=== PATIENT | male | born 1940 | race Caucasian/White ===

== ENCOUNTER 2017-11-15 21:41 | Observation (INO) | payer MEDICARE, OTHER ==
[~2017-11-15] VITALS: Ht 167.6 cm; Wt 79.4 kg
[~2017-11-15 21:41] MED LIST: ALBU0.084 NEB; ALBUAER3 IN; ASPI81CH43 PO; BUDE160A3 INH; CAR3125T PO; ENA2.5T PO; FLUC200T35 PO; FURO20TA3 PO; LEV500T PO; OXYB10TA13 PO; POT10T PO; SACC250C PO; SIMV10TA84 PO; SPIR25TA88 PO; TERA10CA36 PO
[2017-11-15 21:58] VITALS: BP 130/46
[2017-11-15 22:25] LABS: Alanine Aminotransferase 26 U/L (16-61); Albumin 3.1 g/dL (3.4-5.0); Alkaline Phosphatase 138 U/L (45-117); Anion Gap 7 (5-15); Aspartate Aminotransferase 28 U/L (15-37); Bilirubin, Total 0.5 mg/dL (0.2-1.0); Blood Urea Nitrogen 32 mg/dL (7-18); Calcium 8.3 mg/dL (8.5-10.1); Carbon Dioxide 22 mmol/L (21-32); Chloride 111 mmol/L (98-107); GFR African American 74 mL/min; GFR Non-African American 61 mL/min; Glucose 107 mg/dL (74-106); Magnesium 2.4 mg/dL (1.6-2.6); Potassium 4.3 mmol/L (3.5-5.1); Sodium 140 mmol/L (136-145); Total Protein 6.4 g/dL (6.4-8.2)
[2017-11-15 22:29] LABS: Basophils # (auto) 0.1 uL; Eosinophils # (auto) 0.4 uL; Hematocrit 39.3 % (41.0-53.0); Lymphocytes # (auto) 1.1 uL; Lymphocytes % (auto) 12.5 % (10.0-50.0); Mean Corpuscular Hemoglobin 30.9 pg (28.0-32.0); Mean Corpuscular Volume 93.7 fL (80.0-100.0); Monocytes # (auto) 0.7 uL; Monocytes % (auto) 8.1 % (0.0-12.0); Neutrophils # (auto) 6.8 uL; Neutrophils % (auto) 74.4 % (37.0-80.0); Nucleated Red Blood Cells % 0.1 %; Platelet Count (auto) 220 10^3/uL (140-450); Red Cell Distribution Width 14.8 % (11.8-14.3); White Blood Cell 9.1 10^3/uL (4.4-10.8)
[2017-11-15 22:40] LABS: Urine Amorphous Crystal FEW /hpf (None Seen); Urine Bacteria FEW /hpf (None Seen); Urine Blood Negative /uL (Negative); Urine Mucus FEW (None Seen); Urine Specific Gravity 1.024 (1.001-1.035); Urine WBC 20 /hpf (0 - 3)
[2017-11-15 22:43] LABS: INR 0.96 (0.9-1.15); Partial Thromboplastin Time 25.9 sec (23.78-33.04); Prothrombin Time 10.3 sec (9.27-12.13)
[2017-11-15 22:50] LABS: Alcohol, Urine < 3.0 mg/dL (0-5); Amphetamine Screen, Urine NEGATIVE (NEGATIVE); Barbiturate Scree,Urine NEGATIVE (NEGATIVE); Benzodiazephine Screen, Urine NEGATIVE (NEGATIVE); Cannabinoid Screen, Urine POSITIVE (NEGATIVE); Cocaine Screen, Urine NEGATIVE (NEGATIVE); Opiate Scree,Urine NEGATIVE (NEGATIVE); Phencyclidine Screen, Urine NEGATIVE (NEGATIVE)
== END 2017-11-16 00:03 | disposition home or self-care (01) | DRG 696 ==
LOC: ER 21:41 → OVERFLOW 21:42 → ER 11-16 00:03
PROVIDERS: ADMIT Emergency Medicine; ATTEND Emergency Medicine
DX: R33.9 Retention of urine, unspecified (principal); N39.0 Urinary tract infection, site not specified; Z79.899 Other long term (current) drug therapy; I11.0 Hypertensive heart disease with heart failure; I50.9 Heart failure, unspecified; J44.9 Chronic obstructive pulmonary disease, unspecified; E78.5 Hyperlipidemia, unspecified; F41.9 Anxiety disorder, unspecified; F17.210 Nicotine dependence, cigarettes, uncomplicated; Z87.442 Personal history of urinary calculi
CPT/HCPCS: 36415; 71045; 80053; 80307; 81001; 83735; 83880; 84484; 85025; 85379; 85610; 85730; 93005; 99285; G0378

== ENCOUNTER 2017-11-18 00:48 | Observation (INO) | payer MEDICARE, OTHER ==
[~2017-11-18] VITALS: Ht 170.2 cm; Wt 79.4 kg
[2017-11-18 01:49] LABS: Basophils # (auto) 0.1 uL; Basophils % (auto) 1.2 % (0.0-2.0); Eosinophils # (auto) 0.3 uL; Eosinophils % (auto) 2.5 % (0.0-7.0); Hematocrit 39.5 % (41.0-53.0); Lymphocytes # (auto) 0.9 uL; Lymphocytes % (auto) 8.4 % (10.0-50.0); Mean Corpuscular Hemoglobin 30.6 pg (28.0-32.0); Mean Corpuscular Volume 92.9 fL (80.0-100.0); Monocytes # (auto) 0.7 uL; Monocytes % (auto) 6.6 % (0.0-12.0); Neutrophils # (auto) 8.4 uL; Neutrophils % (auto) 81.3 % (37.0-80.0); Nucleated Red Blood Cells % 0.1 %; Platelet Count (auto) 219 10^3/uL (140-450); Red Blood Cells 4.25 10^6/uL (4.5-5.90); Red Cell Distribution Width 14.9 % (11.8-14.3); White Blood Cell 10.4 10^3/uL (4.4-10.8)
[2017-11-18 02:06] LABS: INR 0.95 (0.9-1.15); Partial Thromboplastin Time 26.1 sec (23.78-33.04); Prothrombin Time 10.2 sec (9.27-12.13)
[2017-11-18 02:07] LABS: Alanine Aminotransferase 33 U/L (16-61); Albumin 3.2 g/dL (3.4-5.0); Anion Gap 9 (5-15); Aspartate Aminotransferase 31 U/L (15-37); BUN/Creatinine Ratio 24.5; Blood Urea Nitrogen 23 mg/dL (7-18); Calcium 8.1 mg/dL (8.5-10.1); Carbon Dioxide 21 mmol/L (21-32); Chloride 110 mmol/L (98-107); GFR African American 100 mL/min; GFR Non-African American 83 mL/min; Glucose 110 mg/dL (74-106); Magnesium 2.1 mg/dL (1.6-2.6); Potassium 4.7 mmol/L (3.5-5.1); Sodium 140 mmol/L (136-145)
[2017-11-18 02:10] LABS: Alkaline Phosphatase 114 U/L (45-117); Bilirubin, Total 0.6 mg/dL (0.2-1.0); Total Protein 6.5 g/dL (6.4-8.2)
[2017-11-18 03:07] VITALS: BP 139/81
[2017-11-18] MEDS ORDERED: fentaNYL CITRATE 100 MCG/2 ML VL IV ONE (03:45)
== END 2017-11-18 06:15 | disposition home or self-care (01) | DRG 204 ==
LOC: ER 00:48 → OVERFLOW 00:49 → ER 06:05
PROVIDERS: ADMIT Anesthesiology; ATTEND Anesthesiology
DX: R06.03 Acute respiratory distress (principal); T83.038A Leakage of other urinary catheter, initial encounter; I11.0 Hypertensive heart disease with heart failure; E78.5 Hyperlipidemia, unspecified; I50.9 Heart failure, unspecified; J44.9 Chronic obstructive pulmonary disease, unspecified; F17.210 Nicotine dependence, cigarettes, uncomplicated; Z87.442 Personal history of urinary calculi; Y73.8 Miscellaneous gastroenterology and urology devices associated with adverse incidents, not elsewhere classified; Z85.46 Personal history of malignant neoplasm of prostate
CPT/HCPCS: 36415; 71045; 74176; 80053; 80320; 83735; 83880; 84484; 85025; 85610; 85730; 93005; 96374; 99285; G0378; J3010

== ENCOUNTER 2020-01-29 15:58 | Inpatient (IN) | payer OTHER, MEDICARE ==
[~2020-01-29] VITALS: Ht 170.2 cm; Wt 190.0 kg
[~2020-01-29 15:58] MED LIST changes: -ALBU0.084 NEB; +ALFU10TA33 PO; +APIX5TAB PO; +ASCO-22 PO; -ASPI81CH43 PO; +ATOR1TAB PO; -CAR3125T PO; +CETI10TA80 PO; +CHOL100046 PO; +DOCU250C3 PO; -ENA2.5T PO; +FERR-20 PO; -FLUC200T35 PO; +FLUT0.05 NAS; +FURO1TAB31 PO; -FURO20TA3 PO; +GUAI200T2 PO; +IBUP200C3 PO; -LEV500T PO; +LEVO500T21 PO; +MET25T PO; -OXYB10TA13 PO; +OXYB10TA14 PO; +PANT40TA2 PO; +TIOT17SP IN; +TRAM50TA2 PO
[2020-01-29] MEDS ORDERED: MORPHINE SULFATE 4 MG/ML SYR/VIAL IV ONE (16:30)
[2020-01-29] MEDS ORDERED: ONDANSETRON HCL 4 MG/2 ML VIAL IV ONE (16:30)
[2020-01-29 17:16] LABS: Basophils # (auto) 0 10 ^3/uL (0-0.2); Basophils % (auto) 0.2 % (0.0-2.0); Eosinophils # (auto) 0.1 10 ^3/uL (0-0.8); Eosinophils % (auto) 1.1 % (0.0-7.0); Hematocrit 31.6 % (41.0-53.0); Hemoglobin 10.3 g/dL (13.5-17.5); Lymphocytes # (auto) 0.7 10 ^3/uL (0.4-5.4); Lymphocytes % (auto) 6.5 % (10.0-50.0); Mean Corpuscular Hemoglobin 29.4 pg (28.0-32.0); Mean Corpuscular Hgb Conc. 32.7 g/dL (32.0-36.0); Mean Corpuscular Volume 89.8 fL (80.0-100.0); Monocytes # (auto) 0.7 10 ^3/uL (0-1.3); Monocytes % (auto) 6.3 % (0.0-12.0); Neutrophils # (auto) 9.7 10 ^3/uL (1.6-8.6); Neutrophils % (auto) 85.9 % (37.0-80.0); Platelet Count (auto) 232 10^3/uL (140-450); Red Blood Cells 3.51 10^6/uL (4.5-5.90); Red Cell Distribution Width 15.5 % (11.8-14.3); White Blood Cell 11.2 10^3/uL (4.4-10.8)
[2020-01-29 17:36] LABS: Calcium 9.2 mg/dL (8.5-10.1); Magnesium 1.8 mg/dL (1.6-2.6)
[2020-01-29 17:38] LABS: BUN/Creatinine Ratio 15.4
[2020-01-29 17:41] LABS: Bilirubin, Total 0.8 mg/dL (0.2-1.0); Total Protein 6.2 g/dL (6.4-8.2)
[2020-01-29 18:13] LABS: Urine Bacteria FEW /hpf (None Seen); Urine Blood 1+ /uL (Negative); Urine Mucus FEW (None Seen); Urine Specific Gravity 1.016 (1.001-1.035); Urine WBC 10 /hpf (0 - 3)
[2020-01-29] MEDS ORDERED: cefTRIAXone 1GM/50ML D5W 50 ML IV ONE (18:15)
[2020-01-29] MEDS ORDERED: ACETAMINOPHEN 325 MG TAB PO PRN (23:00)
[2020-01-29] MEDS ORDERED: ONDANSETRON HCL 4 MG/2 ML VIAL IV PRN (23:00)
[2020-01-29] MEDS ORDERED: DOCUSATE SOD 100 MG CAP PO PRN (23:00)
[2020-01-29] MEDS ORDERED: MORPHINE SULFATE 4 MG/ML SYR/VIAL IV PRN (23:00)
[2020-01-29] MEDS ORDERED: ALBUTEROL SULF HFA 90MCG INH 200DOSE IN PRN (23:00)
[2020-01-29] MEDS ORDERED: PATIENTS OWN MEDICATION (Docusate Sodium 250 MG) PO PRN (23:00)
[2020-01-29] MEDS ORDERED: NITROGLYCERIN 0.4 MG SL TAB SL PRN (23:00)
[2020-01-29] MEDS ORDERED: MORPHINE SULF INJ 2 MG/ML SYRINGE 1ML IV PRN (23:00)
[2020-01-29] MEDS ORDERED: HYDROcodone-ACET 5/325MG TAB PO PRN (23:00)
[2020-01-30] VITALS (7 sets, daily range): BP systolic 105–138; BP diastolic 43–70
--- NOTE | 2020-01-30 00:51 | NUR ---
Telemetry admit from ER SHARDA JOSHUA admitted to Telemetry unit after SBAR received. Patient oriented to Ann Price, primary RN, unit, room, bed, and unit policies regarding patient care and visiting hours. Patient now on continuous telemetry monitoring, tele box # [[id number]] and telemetry reading on arrival to unit is [SR 75 WITH 1ST AVB, BBB, AND PAC]. Patient placed on bedside oxygen, weighed by bedscale and encouraged to call if they need something. All questions and concerns addressed, patient verbalized understanding.
[2020-01-30] MEDS ORDERED: DOCUSATE ORAL LIQUID 100 MG/10 ML UD PO PRN (02:00)
--- NOTE | 2020-01-30 03:35 | NUR ---
PATIENT SLEEPING. NO S/S OF DISTRESS AND PAIN NOTED. CONTINUE CARE.
--- NOTE | 2020-01-30 05:47 | NUR ---
PATIENT'S URINE TURNED RED WITH CLOTS. UROLOGY CONSULT PLACED ALREADY. WILL PASS IT TO DAY SHIFT RN. CONTINUE TO MONITOR.
[2020-01-30 06:02] LABS: Basophils # (auto) 0 10 ^3/uL (0-0.2); Basophils % (auto) 0.2 % (0.0-2.0); Eosinophils # (auto) 0.1 10 ^3/uL (0-0.8); Hemoglobin 10.2 g/dL (13.5-17.5); Lymphocytes # (auto) 0.6 10 ^3/uL (0.4-5.4); Lymphocytes % (auto) 5.7 % (10.0-50.0); Mean Corpuscular Hemoglobin 29.7 pg (28.0-32.0); Mean Corpuscular Hgb Conc. 32.9 g/dL (32.0-36.0); Mean Corpuscular Volume 90.3 fL (80.0-100.0); Monocytes # (auto) 0.9 10 ^3/uL (0-1.3); Monocytes % (auto) 9.4 % (0.0-12.0); Neutrophils # (auto) 8.2 10 ^3/uL (1.6-8.6); Neutrophils % (auto) 83.7 % (37.0-80.0); Platelet Count (auto) 214 10^3/uL (140-450); Red Blood Cells 3.43 10^6/uL (4.5-5.90); Red Cell Distribution Width 15.8 % (11.8-14.3); White Blood Cell 9.8 10^3/uL (4.4-10.8)
[2020-01-30] MEDS: metroNIDAZOLE 500MG/100ML 100 ML IV SCH ×3 (06:19→21:49)
[2020-01-30] MEDS: SODIUM CHLOR 0.9% PF (SALINE LOCK) 10ML VIAL/SYR IV SCH ×3 (06:19→21:49)
[2020-01-30 06:27] LABS: Albumin 2.7 g/dL (3.4-5.0)
[2020-01-30 06:33] LABS: BUN/Creatinine Ratio 14.8; Bilirubin, Total 0.5 mg/dL (0.2-1.0); Calcium 8.5 mg/dL (8.5-10.1); Total Protein 5.6 g/dL (6.4-8.2)
--- NOTE | 2020-01-30 06:36 | NUR ---
PATIENT'S FAMILY CALLED. NO INFO RELEASED SINCE NO PASSWORD SETUP. PATIENT IS SLEEPING NOW. ASKED FAMILY TO CALL BACK LATER IF SHE STILL WOULD LIKE TO TALK TO PATIENT. CONTINUE TO MONITOR.
--- NOTE | 2020-01-30 07:30 | NUR ---
Assumed care of pt. He is resting in bed, requesting water. He was explained that his status is NPO due to upcoming consults for GI and Urology and possible procedures. He verbalizes understanding. He is also requesting breathing treatment at this time, RT arrived just in time.
[2020-01-30] MEDS: BUDESONIDE (INHALATION) 0.5 MG/2 ML NEB NEB SCH ×2 (07:36→21:55)
[2020-01-30] MEDS: ALBUTEROL SULF 2.5 MG/0.5ML(0.5%) NEB SOLN NEB SCH ×3 (07:36→21:56)
[2020-01-30] MEDS ORDERED: traMADol HCL 50 MG TAB PO SCH (10:00)
[2020-01-30] MEDS ORDERED: cefTRIAXone SOD 500 MG VL IV SCH (10:00)
[2020-01-30] MEDS ORDERED: ENOXAPARIN SOD 40 MG/0.4 ML SYRINGE SC SCH (10:00)
[2020-01-30] MEDS ORDERED: PATIENTS OWN MEDICATION (Ferrous Sulfate 325 MG) PO SCH (10:00)
[2020-01-30] MEDS ORDERED: CHOLECALCIFEROL PO SCH (10:00)
[2020-01-30] MEDS: APIXABAN 5 MG TAB PO SCH ×2 (10:00→21:47)
[2020-01-30] MEDS ORDERED: ALFUZOSIN HYDROCHLORIDE 10 MG PO SCH (10:00)
[2020-01-30] MEDS ORDERED: PATIENTS OWN MEDICATION (Budesonide-Formoterol Fumarate (Symbicort) 2 PUFF) INH SCH (10:00)
[2020-01-30] MEDS ORDERED: PANTOPRAZOLE 40 MG/10 ML VIAL INJ IV SCH (10:00)
[2020-01-30] MEDS ORDERED: SODIUM CHLORIDE 0.9% 1,000 ML IV ONE (11:00)
[2020-01-30] MEDS ORDERED: MANNITOL FTV 25% 12.5 GM/50 ML 50 ML IV ONE (11:00)
[2020-01-30] MEDS: cefTRIAXone 1GM/50ML D5W 50 ML IV SCH (11:05)
[2020-01-30] MEDS: CHOLECALCIFEROL (VITD3) 1,000UNIT=25mCg TAB PO SCH (11:19)
[2020-01-30] MEDS: ASCORBIC ACID 500 MG TAB PO SCH ×2 (11:19→21:48)
[2020-01-30] MEDS: MULTIPLE VITAMIN TAB PO SCH (11:19)
[2020-01-30] MEDS: PANTOPRAZOLE 40 MG TAB PO SCH (11:27)
[2020-01-30] MEDS: FUROSEMIDE 40 MG TAB PO SCH (11:28)
[2020-01-30] MEDS: SPIRONOLACTONE 25 MG TAB PO SCH (11:28)
[2020-01-30] MEDS: LORATADINE 10 MG TAB PO SCH (11:29)
[2020-01-30] MEDS: METOPROLOL TARTRATE 25 MG TAB PO SCH ×2 (11:29→21:47)
--- NOTE | 2020-01-30 11:30 | NUR ---
Pt. was bladder irrigated manually. Total of 90mls of sterile water were injected in intervals of 30mls at a time and pulled back. Blood clots and brownish urine were aspirated. He was let to rest. Zhu catheter was emptied and will monitor for upcoming urine color.
[2020-01-30] MEDS: FERROUS SULFATE 325 MG TAB PO SCH (12:00)
--- NOTE | 2020-01-30 12:32 | NUR ---
Urine output continues to be red in color. Will reassess in an hour.
[2020-01-30] MEDS: BICALUTAMIDE 50 MG TAB PO SCH (14:01)
--- NOTE | 2020-01-30 18:22 | NUR ---
Pt.'s urine is now dark yellow in color. No clots or blood has been noted in the past 2 hours.
--- NOTE | 2020-01-30 19:11 | NUR ---
Pt. is resting comfortably in bed. He denies abdominal pain at this time. bed in lowest position call light within reach.
--- NOTE | 2020-01-30 19:25 | NUR ---
RECEIVED PATIENT FROM DAY SHIFT RN. PATIENT RESTING IN BED. NO S/S OF DISTRESS NOTED. DENIED ABD PAIN AT THIS TIME JONES CATH IN PLACE DRAINING TO GRAVITY WITH LIGHT PINK CLOUDY URINE. POC INSTRUCTED AND ENCOURAGED PATIENT TO CALL FOR PAPER SUPERVISOR IF NEEDED. BED IN LOWEST POSITION WITH SIDE RAILS UP X 2. CALL PATEL WITHIN REACH. ALARM ON. CONTINUE TO MONITOR FOR CHANGES Q1H AND PRN.
[2020-01-30] MEDS: IBUPROFEN 400 MG TAB PO PRN (21:48)
--- NOTE | 2020-01-30 21:49 | NUR ---
PATIENT REQUESTED TO HAVE MOTRIN FOR HEADACHE @ 08/30. MEDICATED PATIENT ORDERED. CONTINUE TO MONITOR.
[2020-01-30] MEDS ORDERED: traMADol HCL 50 MG TAB PO PRN (22:00)
--- NOTE | 2020-01-30 22:04 | NUR ---
RT AT BEDSIDE FOR BREATHING TREATMENT.
--- NOTE | 2020-01-31 03:22 | NUR ---
PATIENT SLEEPING. NO S/S OF DISTRESS NOTED. CONTINUE CARE.
[2020-01-31 05:00] VITALS: BP 122/62
[2020-01-31] MEDS: IBUPROFEN 400 MG TAB PO PRN (05:30)
[2020-01-31] MEDS: metroNIDAZOLE 500MG/100ML 100 ML IV SCH ×3 (05:30→21:56)
[2020-01-31] MEDS: SODIUM CHLOR 0.9% PF (SALINE LOCK) 10ML VIAL/SYR IV SCH ×3 (05:30→21:59)
--- NOTE | 2020-01-31 05:31 | NUR ---
PATIENT C/O HEADACHE @ 08/30 AND REQUESTED TO HAVE MOTRIN. MEDICATED PATIENT ORDERED. CONTINUE TO MONITOR.
[2020-01-31 06:32] LABS: Basophils # (auto) 0 10 ^3/uL (0-0.2); Basophils % (auto) 0.5 % (0.0-2.0); Eosinophils # (auto) 0.2 10 ^3/uL (0-0.8); Eosinophils % (auto) 2.5 % (0.0-7.0); Hematocrit 29.8 % (41.0-53.0); Hemoglobin 9.8 g/dL (13.5-17.5); Lymphocytes # (auto) 0.6 10 ^3/uL (0.4-5.4); Lymphocytes % (auto) 7.5 % (10.0-50.0); Mean Corpuscular Hemoglobin 29.7 pg (28.0-32.0); Mean Corpuscular Hgb Conc. 33.1 g/dL (32.0-36.0); Mean Corpuscular Volume 89.7 fL (80.0-100.0); Monocytes # (auto) 0.8 10 ^3/uL (0-1.3); Monocytes % (auto) 9.8 % (0.0-12.0); Neutrophils # (auto) 6.7 10 ^3/uL (1.6-8.6); Neutrophils % (auto) 79.7 % (37.0-80.0); Platelet Count (auto) 214 10^3/uL (140-450); Red Blood Cells 3.32 10^6/uL (4.5-5.90); Red Cell Distribution Width 16.1 % (11.8-14.3); White Blood Cell 8.5 10^3/uL (4.4-10.8)
[2020-01-31 06:47] LABS: BUN/Creatinine Ratio 17.4; Calcium 8.6 mg/dL (8.5-10.1); Potassium 3.6 mmol/L (3.5-5.1)
[2020-01-31] MEDS: BUDESONIDE (INHALATION) 0.5 MG/2 ML NEB NEB SCH ×2 (06:49→18:25)
[2020-01-31] MEDS: ALBUTEROL SULF 2.5 MG/0.5ML(0.5%) NEB SOLN NEB SCH ×3 (06:49→18:25)
--- NOTE | 2020-01-31 07:33 | NUR ---
Assumed care of Pt. He is sitting comfortably in bed at this time, awaiting breakfast. Denies any pain at this time. Bed in lowest position, call light within reach.
--- NOTE | 2020-01-31 08:30 | NUR ---
Pt.'s urine noted to have some blood clots and is dark brown in color. Will continue to monitor.
[2020-01-31 09:25] VITALS: BP 111/70
[2020-01-31] MEDS: cefTRIAXone 1GM/50ML D5W 50 ML IV SCH (09:42)
[2020-01-31] MEDS: PANTOPRAZOLE 40 MG TAB PO SCH (09:42)
[2020-01-31] MEDS: ASCORBIC ACID 500 MG TAB PO SCH (09:42)
[2020-01-31] MEDS: LORATADINE 10 MG TAB PO SCH (09:42)
[2020-01-31] MEDS: CHOLECALCIFEROL (VITD3) 1,000UNIT=25mCg TAB PO SCH (09:42)
[2020-01-31] MEDS: MULTIPLE VITAMIN TAB PO SCH (09:42)
[2020-01-31] MEDS: APIXABAN 5 MG TAB PO SCH ×2 (09:43→21:57)
[2020-01-31] MEDS: BICALUTAMIDE 50 MG TAB PO SCH (09:43)
[2020-01-31] MEDS: FUROSEMIDE 40 MG TAB PO SCH (09:44)
[2020-01-31] MEDS: METOPROLOL TARTRATE 25 MG TAB PO SCH ×2 (09:44→21:58)
[2020-01-31] MEDS ORDERED: BICALUTAMIDE 50 MG PO SCH (10:00)
[2020-01-31] MEDS: SPIRONOLACTONE 25 MG TAB PO SCH (10:00)
--- NOTE | 2020-01-31 11:59 | NUR ---
Dr. Ambriz rounded on Pt., she was notified that Pt. continues to have blood clots and blood every few hours. She explained she requested a UA. She was then asked if she wants Pt. to continue taking Eliquis since he's been having blood clots, she said continue Eliquis. She then ordered Lactulose 60mg PO ONCE for his constipation.
[2020-01-31] MEDS ORDERED: LACTULOSE 20Gm/30ML SOLN PO ONE (12:15)
[2020-01-31] MEDS: ALFUZOSIN HYDROCHLORIDE 10 MG PO SCH (12:30)
[2020-01-31 13:30] VITALS: BP 111/58
[2020-01-31] MEDS: FERROUS SULFATE 325 MG TAB PO SCH (14:20)
--- NOTE | 2020-01-31 16:10 | NUR ---
Pt.'s urine has been dark yellow for the past two hours. No blood clots or blood noted on urine.
[2020-01-31 17:10] VITALS: BP 100/58
--- NOTE | 2020-01-31 18:10 | NUR ---
Pt. is resting comfortably in bed. He states feeling a little better. Urine output continues to be yellow at this time. No blood clots noted in the past 4 hours. He was given Lactulose 60mg to encourage a bowel movement, but he continues to be unable to have one up until now. Night RN, will be suggested to give him ordered Liquid Colace.
--- NOTE | 2020-01-31 19:04 | NUR ---
Pt. was gotten out of bed with walker and portable oxygen. we made a lap around [facility]. He tolerated well.
--- NOTE | 2020-01-31 19:40 | NUR ---
Opening Shift Note Assumed care of patient, awake and alert. No S/S of distress/SOB noted. Bed is in lowest locked position with bed rails up x2 and call light is within reach of the patient. Instructed on POC and to call for assist PRN.
[2020-01-31 21:45] VITALS: BP 126/68
[2020-02-01] MEDS: ALBUTEROL SULF 2.5 MG/0.5ML(0.5%) NEB SOLN NEB SCH ×4 (00:23→18:35)
[2020-02-01 05:00] VITALS: BP 124/50
[2020-02-01] MEDS: SODIUM CHLOR 0.9% PF (SALINE LOCK) 10ML VIAL/SYR IV SCH ×3 (05:51→22:06)
[2020-02-01] MEDS: metroNIDAZOLE 500MG/100ML 100 ML IV SCH ×3 (05:56→22:00)
[2020-02-01 09:20] VITALS: BP 103/60
[2020-02-01] MEDS: SPIRONOLACTONE 25 MG TAB PO SCH (09:42)
[2020-02-01] MEDS: cefTRIAXone 1GM/50ML D5W 50 ML IV SCH (09:42)
[2020-02-01] MEDS: FUROSEMIDE 40 MG TAB PO SCH (09:43)
[2020-02-01] MEDS: PANTOPRAZOLE 40 MG TAB PO SCH (09:43)
[2020-02-01] MEDS: METOPROLOL TARTRATE 25 MG TAB PO SCH ×2 (09:44→22:00)
[2020-02-01] MEDS: BICALUTAMIDE 50 MG TAB PO SCH (09:44)
[2020-02-01] MEDS: APIXABAN 5 MG TAB PO SCH ×2 (09:44→21:59)
[2020-02-01] MEDS: BUDESONIDE (INHALATION) 0.5 MG/2 ML NEB NEB SCH ×2 (11:01→18:35)
[2020-02-01] MEDS: FERROUS SULFATE 325 MG TAB PO SCH (12:09)
--- NOTE | 2020-02-01 12:35 | NUR ---
Hospitalist Rounding Dr. Mcneil rounded on patient.
[2020-02-01] MEDS: ALFUZOSIN HYDROCHLORIDE 10 MG PO SCH (12:38)
--- NOTE | 2020-02-01 12:53 | NUR ---
Urine Culture As per microbiology, Results will be available 02/01. No growth thus far.
[2020-02-01 12:54] VITALS: BP 114/69
[2020-02-01 16:27] VITALS: BP 116/64
--- NOTE | 2020-02-01 18:42 | NUR ---
AT BEDSIDE FOR MED ERIC LIN.
--- NOTE | 2020-02-01 19:55 | NUR ---
Opening Shift Note Assumed care of patient, resting in bed with breaths even and unlabored. No S/S of distress/SOB noted. Bed is in lowest locked position with bed rails up x2 and call light is within reach of the patient. Zhu draining to gravity under the bedside.
[2020-02-01 22:48] VITALS: BP 113/64
[2020-02-02] MEDS: ALBUTEROL SULF 2.5 MG/0.5ML(0.5%) NEB SOLN NEB SCH ×4 (00:17→17:37)
--- NOTE | 2020-02-02 00:19 | NUR ---
AT BEDSIDE FOR MED ERIC LIN.
[2020-02-02 05:03] VITALS: BP 122/67
[2020-02-02] MEDS: SODIUM CHLOR 0.9% PF (SALINE LOCK) 10ML VIAL/SYR IV SCH ×3 (05:31→22:25)
[2020-02-02] MEDS: metroNIDAZOLE 500MG/100ML 100 ML IV SCH ×3 (05:36→22:24)
[2020-02-02 06:24] LABS: Basophils # (auto) 0.1 10 ^3/uL (0-0.2); Basophils % (auto) 0.7 % (0.0-2.0); Eosinophils # (auto) 0.3 10 ^3/uL (0-0.8); Eosinophils % (auto) 2.9 % (0.0-7.0); Hematocrit 30.5 % (41.0-53.0); Hemoglobin 10.2 g/dL (13.5-17.5); Lymphocytes # (auto) 0.7 10 ^3/uL (0.4-5.4); Mean Corpuscular Hemoglobin 29.2 pg (28.0-32.0); Mean Corpuscular Hgb Conc. 33.3 g/dL (32.0-36.0); Mean Corpuscular Volume 87.7 fL (80.0-100.0); Monocytes # (auto) 0.7 10 ^3/uL (0-1.3); Neutrophils # (auto) 7.5 10 ^3/uL (1.6-8.6); Neutrophils % (auto) 80.4 % (37.0-80.0); Platelet Count (auto) 267 10^3/uL (140-450); Red Blood Cells 3.48 10^6/uL (4.5-5.90); Red Cell Distribution Width 15.6 % (11.8-14.3); White Blood Cell 9.4 10^3/uL (4.4-10.8)
[2020-02-02] MEDS: BUDESONIDE (INHALATION) 0.5 MG/2 ML NEB NEB SCH ×2 (06:24→17:37)
[2020-02-02 06:39] LABS: Calcium 8.5 mg/dL (8.5-10.1); Potassium 3.5 mmol/L (3.5-5.1)
[2020-02-02 06:43] LABS: BUN/Creatinine Ratio 23.7
[2020-02-02 09:00] VITALS: BP 114/63
[2020-02-02] MEDS: cefTRIAXone 1GM/50ML D5W 50 ML IV SCH (09:12)
[2020-02-02] MEDS: SPIRONOLACTONE 25 MG TAB PO SCH (09:15)
[2020-02-02] MEDS: PANTOPRAZOLE 40 MG TAB PO SCH (09:15)
[2020-02-02] MEDS: APIXABAN 5 MG TAB PO SCH ×2 (09:15→22:25)
[2020-02-02] MEDS: FUROSEMIDE 40 MG TAB PO SCH (09:16)
[2020-02-02] MEDS: METOPROLOL TARTRATE 25 MG TAB PO SCH ×2 (09:16→22:24)
[2020-02-02] MEDS: BICALUTAMIDE 50 MG TAB PO SCH (09:17)
--- NOTE | 2020-02-02 11:00 | NUR ---
Nutrition Assessment Est energy needs 2380-4106 kcal (11-14kcal/kg BW 149.9kg) Est protein needs 67-87g (1-1.3g/kg IBW 67kg) Will reassess prn. Addendum: 02/02/20 at [address] Amended: Links added.
[2020-02-02] MEDS: FERROUS SULFATE 325 MG TAB PO SCH (12:19)
[2020-02-02 12:51] VITALS: BP 102/56
[2020-02-02] MEDS: ALFUZOSIN HYDROCHLORIDE 10 MG PO SCH (13:01)
--- NOTE | 2020-02-02 13:10 | NUR ---
Zhu Catheter As per urologist SUSTAINABILITY CONSULTANT (Annemarie), Zhu catheter should be removed prior to discharge.
[2020-02-02] MEDS ORDERED: NITR-87 PO (13:39)
[2020-02-02 15:16] VITALS: BP 106/61
--- NOTE | 2020-02-02 16:10 | NUR ---
Feeling Unwell Patient complained of feeling unwell. Wanted to use the bathroom, assisted him to the side of the bed but patient began to experience SOB without his oxygen. Replaced nasal canula and assisted patient to bedside commode. Will continue to monitor patient.
--- NOTE | 2020-02-02 16:15 | NUR ---
Feeling Unwell Patient had a large bowel movement, however states that he feels like he need a breathing treatment and and he just does not feel well. Will notify MD and call respiratory therapist. Vitals stable at this time.
--- NOTE | 2020-02-02 16:21 | NUR ---
Hospitalist Phone call returned by Dr. Leiva to hold discharge for today. Patient will be notified.
[2020-02-02 17:00] VITALS: BP 111/64
[2020-02-02 22:00] VITALS: BP 121/71
[2020-02-03] MEDS: ALBUTEROL SULF 2.5 MG/0.5ML(0.5%) NEB SOLN NEB SCH ×3 (00:12→11:37)
[2020-02-03 05:00] VITALS: BP 117/63
[2020-02-03] MEDS: BUDESONIDE (INHALATION) 0.5 MG/2 ML NEB NEB SCH (05:57)
[2020-02-03] MEDS: SODIUM CHLOR 0.9% PF (SALINE LOCK) 10ML VIAL/SYR IV SCH ×2 (06:08→14:00)
[2020-02-03] MEDS: metroNIDAZOLE 500MG/100ML 100 ML IV SCH ×2 (06:08→14:00)
[2020-02-03 09:00] VITALS: BP 126/77
[2020-02-03] MEDS: cefTRIAXone 1GM/50ML D5W 50 ML IV SCH (10:21)
[2020-02-03] MEDS: SPIRONOLACTONE 25 MG TAB PO SCH (10:21)
[2020-02-03] MEDS: APIXABAN 5 MG TAB PO SCH (10:22)
[2020-02-03] MEDS: BICALUTAMIDE 50 MG TAB PO SCH (10:22)
[2020-02-03] MEDS: METOPROLOL TARTRATE 25 MG TAB PO SCH (10:23)
[2020-02-03] MEDS: PANTOPRAZOLE 40 MG TAB PO SCH (10:23)
[2020-02-03] MEDS: FUROSEMIDE 40 MG TAB PO SCH (10:23)
[2020-02-03] MEDS: FERROUS SULFATE 325 MG TAB PO SCH (12:24)
[2020-02-03] MEDS: ALFUZOSIN HYDROCHLORIDE 10 MG PO SCH (12:25)
[2020-02-03 13:00] VITALS: BP_SYST 112; BP_SYST 124; BP_DIAS 65; BP_DIAS 69
[2020-02-03 16:15] VITALS: BP 124/69
[2020-02-03 16:56] VITALS: BP 106/59
--- NOTE | 2020-02-03 17:49 | NUR ---
Discharge instructions given as ordered. Encourage to follow up with PMD as instructed. All questions and concerns addressed. Patient verbalized understanding. Medication reconciliation form completed and copy given to patient. Home medications held in Pharmacy returned to patient. IV removed with catheter intact, pressure dressing applied. Telemetry unit returned to ICU. Patient taken to vehicle via wheelchair with all personal belongings, accompanied by staff and family member. No distress noted at time of departure.
== END 2020-02-03 17:49 | disposition home or self-care (01) | DRG 872 ==
LOC: ER 15:58 → TELE 15:59 → TELE-WESTW 23:44
PROVIDERS: ADMIT Nurse Practitioner Family; ATTEND Internal Medicine Pulmonary Disease
DX: A41.9 Sepsis, unspecified organism (principal); N13.6 Pyonephrosis; Z68.43 Body mass index [BMI] 50.0-59.9, adult; K57.90 Diverticulosis of intestine, part unspecified, without perforation or abscess without bleeding; K59.00 Constipation, unspecified; E66.01 Morbid (severe) obesity due to excess calories; K80.20 Calculus of gallbladder without cholecystitis without obstruction; E78.5 Hyperlipidemia, unspecified; F17.210 Nicotine dependence, cigarettes, uncomplicated; I11.0 Hypertensive heart disease with heart failure; I50.9 Heart failure, unspecified; J44.9 Chronic obstructive pulmonary disease, unspecified; K76.89 Other specified diseases of liver; M51.36 Other intervertebral disc degeneration, lumbar region; Z79.01 Long term (current) use of anticoagulants; Z79.51 Long term (current) use of inhaled steroids; Z79.899 Other long term (current) drug therapy; Z85.46 Personal history of malignant neoplasm of prostate; Z87.442 Personal history of urinary calculi; F41.9 Anxiety disorder, unspecified; Z88.8 Allergy status to other drugs, medicaments and biological substances
CPT/HCPCS: 36415; 71045; 74176; 80048; 80053; 81001; 83690; 83735; 85025; 87086; 94640; 96365; 96375; G0378; J0696; J2405; J3490

== ENCOUNTER 2020-09-20 00:25 | Inpatient (IN) | payer OTHER, MEDICARE ==
[~2020-09-20] VITALS: Ht 167.6 cm; Wt 87.5 kg
[~2020-09-20 00:25] MED LIST changes: +ATOR-47 PO; -ATOR1TAB PO; -DOCU250C3 PO; +DOCU250C4 PO; -GUAI200T2 PO; -LEVO500T21 PO; +LEVO500T31 PO; +NITR-87 PO; -SIMV10TA84 PO; +SPIR25TA PO; -SPIR25TA88 PO; -TRAM50TA2 PO
[2020-09-20] MEDS ORDERED: methylPREDNISolone SOD SUCC 125 MG/2 ML VL IV ONE (00:45)
[2020-09-20 01:05] LABS: Basophils # (auto) 0 10 ^3/uL (0-0.2); Basophils % (auto) 0.4 % (0.0-2.0); Eosinophils # (auto) 0.4 10 ^3/uL (0-0.8); Eosinophils % (auto) 4.2 % (0.0-7.0); Hematocrit 33.2 % (41.0-53.0); Hemoglobin 10.8 g/dL (13.5-17.5); Lymphocytes # (auto) 1.2 10 ^3/uL (0.4-5.4); Lymphocytes % (auto) 13.3 % (10.0-50.0); Mean Corpuscular Hemoglobin 29.5 pg (28.0-32.0); Mean Corpuscular Hgb Conc. 32.6 g/dL (32.0-36.0); Mean Corpuscular Volume 90.5 fL (80.0-100.0); Monocytes # (auto) 0.8 10 ^3/uL (0-1.3); Monocytes % (auto) 8.7 % (0.0-12.0); Neutrophils # (auto) 6.8 10 ^3/uL (1.6-8.6); Neutrophils % (auto) 73.4 % (37.0-80.0); Platelet Count (auto) 224 10^3/uL (140-450); Red Blood Cells 3.67 10^6/uL (4.5-5.90); Red Cell Distribution Width 16.5 % (11.8-14.3); White Blood Cell 9.2 10^3/uL (4.4-10.8)
[2020-09-20 01:18] LABS: Alanine Aminotransferase 23 U/L (16-61); Anion Gap 4 (5-15); Aspartate Aminotransferase 27 U/L (15-37); BUN/Creatinine Ratio 17.2; Blood Urea Nitrogen 17 mg/dL (7-18); Calcium 8.3 mg/dL (8.5-10.1); Carbon Dioxide 28 mmol/L (21-32); Chloride 111 mmol/L (98-107); GFR African American 94 mL/min; GFR Non-African American 78 mL/min; Glucose 114 mg/dL (74-106); Magnesium 2.1 mg/dL (1.6-2.6); Potassium 4.6 mmol/L (3.5-5.1); Sodium 143 mmol/L (136-145)
[2020-09-20 01:19] LABS: INR 1.06 (0.9-1.15)
[2020-09-20 01:23] LABS: Urine Bacteria NONE SEEN /hpf (None Seen); Urine Blood TRACE /uL (Negative); Urine Budding Yeast MANY /hpf (None Seen); Urine Mucus FEW (None Seen); Urine WBC 72 /hpf (0 - 3)
[2020-09-20 01:23] LABS: Alkaline Phosphatase 106 U/L (45-117); Bilirubin, Total 0.6 mg/dL (0.2-1.0)
[2020-09-20] MEDS ORDERED: levoFLOXacin 500MG 100 ML IV ONE (02:15)
[2020-09-20] MEDS ORDERED: IPRATROPIUM BROM 0.5 MG/2.5ML INH SOL ONE (04:28)
[2020-09-20] MEDS ORDERED: ALBUTEROL SULF 2.5 MG/0.5ML(0.5%) NEB SOLN ONE (04:28)
[2020-09-20] MEDS ORDERED: ALBUTEROL SULF 2.5 MG/0.5ML(0.5%) NEB SOLN NEB ONE (04:45)
[2020-09-20] MEDS ORDERED: IPRATROPIUM BROM 0.5 MG/2.5ML INH SOL NEB ONE (04:45)
[2020-09-20] MEDS ORDERED: ONDANSETRON HCL 4 MG/2 ML VIAL IV PRN (06:30)
[2020-09-20] MEDS ORDERED: MORPHINE SULF INJ 2 MG/ML SYRINGE 1ML IV PRN (06:30)
[2020-09-20] MEDS ORDERED: TEMAZEPAM 15 MG CAP PO PRN (06:30)
[2020-09-20] MEDS ORDERED: NITROGLYCERIN 0.4 MG SL TAB SL PRN (06:30)
[2020-09-20 07:00] VITALS: BP 154/52
[2020-09-20] MEDS ORDERED: BICA50TA13 PO (08:49)
[2020-09-20] MEDS: SPIRONOLACTONE 25 MG TAB PO SCH (09:57)
[2020-09-20] MEDS: APIXABAN 5 MG TAB PO SCH ×2 (09:57→21:28)
[2020-09-20] MEDS: cefTRIAXone 1GM/50ML D5W 50 ML IV SCH (09:57)
[2020-09-20] MEDS: PANTOPRAZOLE 40 MG TAB PO SCH (09:58)
[2020-09-20] MEDS: METOPROLOL TARTRATE 25 MG TAB PO SCH ×2 (09:58→21:28)
[2020-09-20] MEDS ORDERED: FUROSEMIDE 40 MG TAB PO SCH (10:00)
[2020-09-20] MEDS: IPRATROPIUM BROM 0.5 MG/2.5ML INH SOL NEB SCH ×2 (11:31→19:06)
[2020-09-20] MEDS: ALBUTEROL SULF 2.5 MG/0.5ML(0.5%) NEB SOLN NEB SCH ×2 (11:31→19:06)
[2020-09-20] MEDS ORDERED: AZITHROMYCIN 250 MG TAB PO ONE (12:30)
[2020-09-20] MEDS ORDERED: FUROSEMIDE 20 MG/2 ML VIAL IV ONE (12:30)
[2020-09-20 13:19] VITALS: BP 155/65
[2020-09-20] MEDS: methylPREDNISolone SOD SUCC 125 MG/2 ML VL IV SCH ×2 (13:44→21:27)
[2020-09-20 17:06] VITALS: BP 104/56
[2020-09-20] MEDS: ATORVASTATIN 20 MG TAB PO SCH (21:27)
[2020-09-20 22:00] VITALS: BP 101/61
[2020-09-21] MEDS: ALBUTEROL SULF 2.5 MG/0.5ML(0.5%) NEB SOLN NEB SCH ×4 (00:16→19:06)
[2020-09-21] MEDS: IPRATROPIUM BROM 0.5 MG/2.5ML INH SOL NEB SCH ×4 (00:16→19:06)
[2020-09-21 05:00] VITALS: BP 130/67
[2020-09-21] MEDS: methylPREDNISolone SOD SUCC 125 MG/2 ML VL IV SCH ×3 (05:20→21:31)
[2020-09-21 06:20] LABS: Basophils # (auto) 0 10 ^3/uL (0-0.2); Basophils % (auto) 0.1 % (0.0-2.0); Eosinophils # (auto) 0 10 ^3/uL (0-0.8); Hematocrit 35.7 % (41.0-53.0); Hemoglobin 12.1 g/dL (13.5-17.5); Lymphocytes # (auto) 0.7 10 ^3/uL (0.4-5.4); Lymphocytes % (auto) 6.7 % (10.0-50.0); Mean Corpuscular Hemoglobin 29.9 pg (28.0-32.0); Mean Corpuscular Hgb Conc. 33.9 g/dL (32.0-36.0); Mean Corpuscular Volume 88.3 fL (80.0-100.0); Monocytes # (auto) 0.5 10 ^3/uL (0-1.3); Monocytes % (auto) 4.6 % (0.0-12.0); Neutrophils % (auto) 88.6 % (37.0-80.0); Platelet Count (auto) 293 10^3/uL (140-450); Red Blood Cells 4.05 10^6/uL (4.5-5.90); Red Cell Distribution Width 16.7 % (11.8-14.3); White Blood Cell 10.2 10^3/uL (4.4-10.8)
[2020-09-21 06:37] LABS: BUN/Creatinine Ratio 28.4; Calcium 9.1 mg/dL (8.5-10.1)
[2020-09-21 09:00] VITALS: BP 110/57
[2020-09-21] MEDS: cefTRIAXone 1GM/50ML D5W 50 ML IV SCH (09:36)
[2020-09-21] MEDS: AZITHROMYCIN 250 MG TAB PO SCH (09:37)
[2020-09-21] MEDS: PANTOPRAZOLE 40 MG TAB PO SCH (09:37)
[2020-09-21] MEDS: APIXABAN 5 MG TAB PO SCH ×2 (09:37→21:31)
[2020-09-21] MEDS: FUROSEMIDE 40 MG/4 ML VIAL IV SCH (09:38)
[2020-09-21] MEDS: ACETAMINOPHEN 325 MG TAB PO PRN (09:59)
[2020-09-21] MEDS: METOPROLOL TARTRATE 25 MG TAB PO SCH ×3 (10:00→21:35)
[2020-09-21] MEDS: SPIRONOLACTONE 25 MG TAB PO SCH ×2 (10:00→15:50)
[2020-09-21 13:00] VITALS: BP 112/49
[2020-09-21 17:00] VITALS: BP 121/77
[2020-09-21] MEDS: ATORVASTATIN 20 MG TAB PO SCH (21:31)
[2020-09-22 00:14] VITALS: BP 118/58
[2020-09-22] MEDS: ALBUTEROL SULF 2.5 MG/0.5ML(0.5%) NEB SOLN NEB SCH ×6 (00:20→22:41)
[2020-09-22] MEDS: IPRATROPIUM BROM 0.5 MG/2.5ML INH SOL NEB SCH ×6 (00:20→22:41)
[2020-09-22] MEDS: methylPREDNISolone SOD SUCC 125 MG/2 ML VL IV SCH ×3 (05:12→22:39)
[2020-09-22 05:43] VITALS: BP 126/63
[2020-09-22] MEDS: cefTRIAXone 1GM/50ML D5W 50 ML IV SCH (08:43)
[2020-09-22] MEDS ORDERED: GUAI200T2 PO (08:46)
[2020-09-22 09:00] VITALS: BP 144/51
[2020-09-22] MEDS: FUROSEMIDE 40 MG/4 ML VIAL IV SCH (10:12)
[2020-09-22] MEDS: PANTOPRAZOLE 40 MG TAB PO SCH (10:13)
[2020-09-22] MEDS: APIXABAN 5 MG TAB PO SCH (10:13)
[2020-09-22] MEDS: Bicalutamide 50 MG TABLET PO SCH (10:13)
[2020-09-22] MEDS: AZITHROMYCIN 250 MG TAB PO SCH (10:13)
[2020-09-22] MEDS: SPIRONOLACTONE 25 MG TAB PO SCH (10:13)
[2020-09-22] MEDS: METOPROLOL TARTRATE 25 MG TAB PO SCH ×3 (10:51→22:39)
[2020-09-22] MEDS ORDERED: FLUTICASONE PROP NASAL SPR 0.05 % (50MCG) 16GM EACHNOSTRI PRN ×2 (11:45→13:45)
[2020-09-22 13:00] VITALS: BP 131/45
[2020-09-22] MEDS ORDERED: guaiFENesin 200 MG/10 ML UD PO PRN (13:00)
[2020-09-22] MEDS ORDERED: OMNIPAQUE ORAL SOLN 500ml 12mg/ml PO ONE (13:54)
[2020-09-22 17:00] VITALS: BP 137/61
[2020-09-22] MEDS ORDERED: IOHEXOL 300 MG/ML 100ML BOTTLE IJ ONE (17:41)
[2020-09-22] MEDS: ACETAMINOPHEN 325 MG TAB PO PRN (18:25)
[2020-09-22 22:00] VITALS: BP 156/77
[2020-09-22] MEDS: ATORVASTATIN 20 MG TAB PO SCH (22:39)
[2020-09-23] MEDS: ALBUTEROL SULF 2.5 MG/0.5ML(0.5%) NEB SOLN NEB SCH ×6 (01:45→21:55)
[2020-09-23] MEDS: IPRATROPIUM BROM 0.5 MG/2.5ML INH SOL NEB SCH ×6 (01:45→21:55)
[2020-09-23 05:00] VITALS: BP 160/80
[2020-09-23] MEDS: methylPREDNISolone SOD SUCC 125 MG/2 ML VL IV SCH (06:34)
[2020-09-23 07:31] LABS: Potassium 3.9 mmol/L (3.5-5.1)
[2020-09-23 07:37] LABS: BUN/Creatinine Ratio 40.6; Calcium 8.7 mg/dL (8.5-10.1)
[2020-09-23 09:00] VITALS: BP 142/46
[2020-09-23] MEDS: cefTRIAXone 1GM/50ML D5W 50 ML IV SCH (09:08)
[2020-09-23 09:17] VITALS: BP 160/80
[2020-09-23] MEDS: FUROSEMIDE 40 MG/4 ML VIAL IV SCH (09:40)
[2020-09-23] MEDS: AZITHROMYCIN 250 MG TAB PO SCH (09:41)
[2020-09-23] MEDS: PANTOPRAZOLE 40 MG TAB PO SCH (09:41)
[2020-09-23] MEDS: SPIRONOLACTONE 25 MG TAB PO SCH (09:41)
[2020-09-23] MEDS: Bicalutamide 50 MG TABLET PO SCH (09:41)
[2020-09-23] MEDS: METOPROLOL TARTRATE 25 MG TAB PO SCH ×2 (09:41→21:58)
[2020-09-23 13:00] VITALS: BP 132/90
[2020-09-23] MEDS: methylPREDNISolone SOD SUCC 40 MG/ML VL IV SCH ×2 (13:49→21:57)
[2020-09-23 17:00] VITALS: BP 135/50
[2020-09-23 18:50] LABS: Albumin 2.9 g/dL (3.4-5.0); BUN/Creatinine Ratio 36.3; Calcium 8.5 mg/dL (8.5-10.1); Potassium 4.6 mmol/L (3.5-5.1)
[2020-09-23 18:53] LABS: Bilirubin, Total 0.5 mg/dL (0.2-1.0); Total Protein 6.2 g/dL (6.4-8.2)
[2020-09-23] MEDS ORDERED: ALBUTEROL SULF 2.5 MG/0.5ML(0.5%) NEB SOLN NEB ONE (19:15)
[2020-09-23] MEDS ORDERED: ALBUTEROL SULF 2.5 MG/0.5ML(0.5%) NEB SOLN ONE (19:22)
[2020-09-23] MEDS: ATORVASTATIN 20 MG TAB PO SCH (21:57)
[2020-09-23 22:00] VITALS: BP 152/62
[2020-09-24] MEDS: IPRATROPIUM BROM 0.5 MG/2.5ML INH SOL NEB SCH ×6 (02:30→22:45)
[2020-09-24] MEDS: ALBUTEROL SULF 2.5 MG/0.5ML(0.5%) NEB SOLN NEB SCH ×6 (02:30→22:46)
[2020-09-24 05:00] VITALS: BP 137/58
[2020-09-24 05:46] LABS: Basophils # (auto) 0 10 ^3/uL (0-0.2); Basophils % (auto) 0.1 % (0.0-2.0); Eosinophils # (auto) 0 10 ^3/uL (0-0.8); Hematocrit 40.9 % (41.0-53.0); Hemoglobin 13.7 g/dL (13.5-17.5); Lymphocytes # (auto) 0.6 10 ^3/uL (0.4-5.4); Lymphocytes % (auto) 4.2 % (10.0-50.0); Mean Corpuscular Hemoglobin 29.9 pg (28.0-32.0); Mean Corpuscular Hgb Conc. 33.4 g/dL (32.0-36.0); Mean Corpuscular Volume 89.5 fL (80.0-100.0); Monocytes # (auto) 0.8 10 ^3/uL (0-1.3); Monocytes % (auto) 5.4 % (0.0-12.0); Neutrophils # (auto) 12.5 10 ^3/uL (1.6-8.6); Neutrophils % (auto) 90.3 % (37.0-80.0); Platelet Count (auto) 366 10^3/uL (140-450); Red Blood Cells 4.57 10^6/uL (4.5-5.90); Red Cell Distribution Width 16.3 % (11.8-14.3); White Blood Cell 13.8 10^3/uL (4.4-10.8)
[2020-09-24 05:56] LABS: INR 1.03 (0.9-1.15); Partial Thromboplastin Time 23.1 sec (23.0-31.2)
[2020-09-24] MEDS: methylPREDNISolone SOD SUCC 40 MG/ML VL IV SCH ×3 (06:22→22:57)
[2020-09-24] MEDS ORDERED: ALPRAZolam 0.25 MG TAB PO ONE (08:00)
[2020-09-24] MEDS ORDERED: LIDOCAINE 2%HCL (LOCAL ANESTH.) INJ 20ML MDV ONE (08:31)
[2020-09-24] MEDS ORDERED: SODIUM CHLORIDE LOCK 30 ML ONE (08:31)
[2020-09-24] MEDS ORDERED: BENZOCAINE (DENTAL) 20 % SPRAY 60ML MT ONE (08:31)
[2020-09-24] MEDS ORDERED: EPINEPHrine HCL 1 MG/1 ML AMP ONE (08:31)
[2020-09-24] MEDS ORDERED: LIDOCAINE HCL 2% TOP JELLY 5ML TOP ONE (08:32)
[2020-09-24] MEDS ORDERED: GLYCOPYRROLATE 0.2 MG/ML 1ML VIAL ONE (08:32)
[2020-09-24] MEDS ORDERED: MIDAZOLAM HCL 5 MG/ML-1ML VIAL ONE (08:32)
[2020-09-24] MEDS ORDERED: fentaNYL CITRATE 100 MCG/2 ML VL ONE (08:32)
[2020-09-24 08:48] VITALS: BP 141/72
[2020-09-24] MEDS ORDERED: LIDOCAINE HCL 2 % INJ 2ML MPF NEB ONE ×2 (09:00→10:00)
[2020-09-24] MEDS: FUROSEMIDE 40 MG/4 ML VIAL IV SCH (10:00)
[2020-09-24] MEDS: AZITHROMYCIN 250 MG TAB PO SCH (10:00)
[2020-09-24] MEDS ORDERED: ACETYLCYSTEINE 20%(200MG/ML) SOL 4ML NEB ONE (10:00)
[2020-09-24] MEDS: METOPROLOL TARTRATE 25 MG TAB PO SCH ×2 (10:00→22:58)
[2020-09-24] MEDS: SPIRONOLACTONE 25 MG TAB PO SCH (10:00)
[2020-09-24] MEDS: Bicalutamide 50 MG TABLET PO SCH (10:00)
[2020-09-24] MEDS: PANTOPRAZOLE 40 MG TAB PO SCH (10:00)
[2020-09-24] MEDS: cefTRIAXone 1GM/50ML D5W 50 ML IV SCH (10:18)
[2020-09-24 13:00] VITALS: BP 132/65
[2020-09-24 16:43] VITALS: BP 103/55
[2020-09-24 22:00] VITALS: BP 117/61
[2020-09-24] MEDS: ATORVASTATIN 20 MG TAB PO SCH (22:57)
[2020-09-25] MEDS: IPRATROPIUM BROM 0.5 MG/2.5ML INH SOL NEB SCH ×6 (02:28→23:05)
[2020-09-25] MEDS: ALBUTEROL SULF 2.5 MG/0.5ML(0.5%) NEB SOLN NEB SCH ×6 (02:28→23:05)
[2020-09-25 05:00] VITALS: BP 112/61
[2020-09-25] MEDS: methylPREDNISolone SOD SUCC 40 MG/ML VL IV SCH ×3 (05:56→21:31)
[2020-09-25 08:29] VITALS: BP 114/64
[2020-09-25] MEDS: Bicalutamide 50 MG TABLET PO SCH (10:00)
[2020-09-25] MEDS: APIXABAN 5 MG TAB PO SCH ×2 (10:12→21:31)
[2020-09-25] MEDS: cefTRIAXone 1GM/50ML D5W 50 ML IV SCH (10:12)
[2020-09-25] MEDS: SPIRONOLACTONE 25 MG TAB PO SCH (10:12)
[2020-09-25] MEDS: AZITHROMYCIN 250 MG TAB PO SCH (10:13)
[2020-09-25] MEDS: PANTOPRAZOLE 40 MG TAB PO SCH (10:13)
[2020-09-25] MEDS: FUROSEMIDE 40 MG/4 ML VIAL IV SCH (10:13)
[2020-09-25] MEDS: METOPROLOL TARTRATE 25 MG TAB PO SCH ×2 (10:14→21:32)
[2020-09-25 13:00] VITALS: BP 130/61
[2020-09-25 17:00] VITALS: BP 126/63
[2020-09-25] MEDS: ATORVASTATIN 20 MG TAB PO SCH (21:32)
[2020-09-25 22:00] VITALS: BP 119/65
[2020-09-25] MEDS: ACETYLCYSTEINE 10 %(100MG/ML) SOL 4ML NEB SCH (23:05)
[2020-09-26] MEDS: IPRATROPIUM BROM 0.5 MG/2.5ML INH SOL NEB SCH ×6 (02:00→21:51)
[2020-09-26] MEDS: ACETYLCYSTEINE 10 %(100MG/ML) SOL 4ML NEB SCH ×6 (02:00→21:51)
[2020-09-26] MEDS: ALBUTEROL SULF 2.5 MG/0.5ML(0.5%) NEB SOLN NEB SCH ×6 (02:01→21:51)
[2020-09-26 05:00] VITALS: BP 151/123
[2020-09-26] MEDS: methylPREDNISolone SOD SUCC 40 MG/ML VL IV SCH ×3 (05:30→21:33)
[2020-09-26 08:48] VITALS: BP 128/71
[2020-09-26 08:59] VITALS: BP 128/71
[2020-09-26] MEDS: Bicalutamide 50 MG TABLET PO SCH (10:00)
[2020-09-26] MEDS: FUROSEMIDE 40 MG/4 ML VIAL IV SCH (10:41)
[2020-09-26] MEDS: AZITHROMYCIN 250 MG TAB PO SCH (10:42)
[2020-09-26] MEDS: SPIRONOLACTONE 25 MG TAB PO SCH (10:42)
[2020-09-26] MEDS: APIXABAN 5 MG TAB PO SCH ×2 (10:42→21:33)
[2020-09-26] MEDS: PANTOPRAZOLE 40 MG TAB PO SCH (10:42)
[2020-09-26] MEDS: METOPROLOL TARTRATE 25 MG TAB PO SCH ×2 (10:43→21:36)
[2020-09-26] MEDS: cefTRIAXone 1GM/50ML D5W 50 ML IV SCH (10:44)
[2020-09-26 13:00] VITALS: BP 147/75
[2020-09-26 17:00] VITALS: BP 131/70
[2020-09-26] MEDS: ATORVASTATIN 20 MG TAB PO SCH (21:34)
[2020-09-26 22:00] VITALS: BP 134/75
[2020-09-27] MEDS: IPRATROPIUM BROM 0.5 MG/2.5ML INH SOL NEB SCH ×4 (02:10→13:58)
[2020-09-27] MEDS: ALBUTEROL SULF 2.5 MG/0.5ML(0.5%) NEB SOLN NEB SCH ×4 (02:10→13:59)
[2020-09-27] MEDS: ACETYLCYSTEINE 10 %(100MG/ML) SOL 4ML NEB SCH ×4 (02:12→13:58)
[2020-09-27 05:00] VITALS: BP 119/63
[2020-09-27] MEDS: methylPREDNISolone SOD SUCC 40 MG/ML VL IV SCH (06:16)
[2020-09-27 08:36] LABS: Hematocrit 41.4 % (41.0-53.0); Hemoglobin 13.5 g/dL (13.5-17.5); Mean Corpuscular Hemoglobin 28.9 pg (28.0-32.0); Mean Corpuscular Hgb Conc. 32.6 g/dL (32.0-36.0); Mean Corpuscular Volume 88.8 fL (80.0-100.0); Platelet Count (auto) 320 10^3/uL (140-450); Red Blood Cells 4.67 10^6/uL (4.5-5.90); Red Cell Distribution Width 16.3 % (11.8-14.3); White Blood Cell 16.1 10^3/uL (4.4-10.8)
[2020-09-27 08:41] LABS: Basophils % (manual) 0 (0.0-2.0); Blast Cells 0; Eosinophils % (manual) 0 (0-7); Metamyelocytes % 0; Myelocytes % 0; Promyelocytes % 0; Reactive Lymphocytes 0
[2020-09-27 08:54] LABS: Potassium 4.5 mmol/L (3.5-5.1)
[2020-09-27 09:01] LABS: Calcium 8.2 mg/dL (8.5-10.1); Magnesium 2.9 mg/dL (1.6-2.6)
[2020-09-27 09:11] VITALS: BP 142/59
[2020-09-27] MEDS: cefTRIAXone 1GM/50ML D5W 50 ML IV SCH (09:38)
[2020-09-27] MEDS: APIXABAN 5 MG TAB PO SCH (10:27)
[2020-09-27] MEDS: SPIRONOLACTONE 25 MG TAB PO SCH (10:27)
[2020-09-27] MEDS: METOPROLOL TARTRATE 25 MG TAB PO SCH (10:27)
[2020-09-27] MEDS: Bicalutamide 50 MG TABLET PO SCH (10:27)
[2020-09-27] MEDS: FUROSEMIDE 40 MG/4 ML VIAL IV SCH (10:27)
[2020-09-27] MEDS: PANTOPRAZOLE 40 MG TAB PO SCH (10:27)
[2020-09-27 12:29] LABS: Band Neutrophils % (manual) 3; Lymphocytes % (manual) 2 (10.0-50.0); Monocytes % (manual) 6 (0-12)
[2020-09-27 13:14] VITALS: BP 142/59
[2020-09-27] MEDS ORDERED: methylPREDNISolone SOD SUCC 40 MG/ML VL IV SCH (14:00)
== END 2020-09-27 16:19 | disposition home or self-care (01) | DRG 291 ==
LOC: ER 00:25 → EDBD 00:25 → TELE 06:25 → TELE-CENTR 11:27
PROVIDERS: ADMIT Nurse Practitioner; ATTEND Internal Medicine
PROC: 5A09357 Assistance with Respiratory Ventilation, Less than 24 Consecutive Hours, Continuous Positive Airway Pressure (ICD-10-PCS; 2020-09-20)
PROC: 0B968ZX Drainage of Right Lower Lobe Bronchus, Via Natural or Artificial Opening Endoscopic, Diagnostic (ICD-10-PCS; principal; 2020-09-24 10:00)
DX: I11.0 Hypertensive heart disease with heart failure (principal); J96.21 Acute and chronic respiratory failure with hypoxia; J18.0 Bronchopneumonia, unspecified organism; J44.1 Chronic obstructive pulmonary disease with (acute) exacerbation; E44.0 Moderate protein-calorie malnutrition; D68.59 Other primary thrombophilia; N39.0 Urinary tract infection, site not specified; J98.11 Atelectasis; J44.0 Chronic obstructive pulmonary disease with (acute) lower respiratory infection; I50.43 Acute on chronic combined systolic (congestive) and diastolic (congestive) heart failure; Z20.822 Contact with and (suspected) exposure to COVID-19; I48.91 Unspecified atrial fibrillation; E78.00 Pure hypercholesterolemia, unspecified; I70.0 Atherosclerosis of aorta; F41.9 Anxiety disorder, unspecified; F17.210 Nicotine dependence, cigarettes, uncomplicated; J98.09 Other diseases of bronchus, not elsewhere classified; Z80.0 Family history of malignant neoplasm of digestive organs; Z82.5 Family history of asthma and other chronic lower respiratory diseases; Z79.01 Long term (current) use of anticoagulants; Z85.46 Personal history of malignant neoplasm of prostate; Z87.442 Personal history of urinary calculi; Z79.899 Other long term (current) drug therapy; Z79.891 Long term (current) use of opiate analgesic
CPT/HCPCS: 36415; 36600; 71045; 71250; 74177; 80048; 80053; 81001; 82805; 83605; 83735; 83880; 84484; 85007; 85025; 85027; 85379; 85610; 85730; 86850; 86900; 86901; 87040; 87070; 87077; 87081; 87186; 87205; 87426; 93005; 93306; 94640; 94660; 96365; 96375; 97110; 97116; 97530; 99291; G0378; J0171; J0696; J1956; J2250; J2405

== ENCOUNTER 2020-10-02 23:25 | Inpatient (IN) | payer MEDICARE, OTHER ==
[~2020-10-02] VITALS: Ht 182.9 cm; Wt 94.7 kg
[~2020-10-02 23:25] MED LIST changes: +BICA50TA13 PO; +CETI10TA2 PO; -CETI10TA80 PO; -DOCU250C4 PO; -FERR-20 PO; +GUAI200T2 PO; -IBUP200C3 PO
[2020-10-03] VITALS (21 sets, daily range): BP systolic 71–150; BP diastolic 31–116
[2020-10-03 00:05] LABS: Hematocrit 32.8 % (41.0-53.0); Mean Corpuscular Hemoglobin 29.6 pg (28.0-32.0); Mean Corpuscular Hgb Conc. 33.7 g/dL (32.0-36.0); Mean Corpuscular Volume 87.8 fL (80.0-100.0); Red Blood Cells 3.74 10^6/uL (4.5-5.90); Red Cell Distribution Width 16.7 % (11.8-14.3); White Blood Cell 17.9 10^3/uL (4.4-10.8)
[2020-10-03 00:08] LABS: Basophils % (manual) 0 (0.0-2.0); Blast Cells 0; Eosinophils % (manual) 0 (0-7); Metamyelocytes % 0; Promyelocytes % 0; Reactive Lymphocytes 0
[2020-10-03 00:19] LABS: INR 1.13 (0.9-1.15); Partial Thromboplastin Time 21.9 sec (23.0-31.2)
[2020-10-03 00:24] LABS: Albumin 2.6 g/dL (3.4-5.0); BUN/Creatinine Ratio 34.1; Calcium 7.8 mg/dL (8.5-10.1); Magnesium 2.4 mg/dL (1.6-2.6); Potassium 4.4 mmol/L (3.5-5.1)
[2020-10-03 00:30] LABS: Bilirubin, Total 0.5 mg/dL (0.2-1.0)
[2020-10-03] MEDS: METOPROLOL TARTRATE 1MG/1ML-5ML VIAL IV SCH ×3 (00:50→00:55)
[2020-10-03 00:59] LABS: Band Neutrophils % (manual) 2; Lymphocytes % (manual) 2 (10.0-50.0); Monocytes % (manual) 2 (0-12); Myelocytes % 2
[2020-10-03] MEDS ORDERED: VANCOMYCIN PER PHARMACY 0 MG IV SCH (02:30)
[2020-10-03] MEDS ORDERED: VANCOMYCIN 1GM/250ML 250 ML IV ONE (02:45)
[2020-10-03] MEDS ORDERED: ALBUMIN 25% 50 ML IV ONE (03:45)
[2020-10-03] MEDS ORDERED: ACETAMINOPHEN 325 MG TAB PO PRN (03:45)
[2020-10-03] MEDS ORDERED: HYDROcodone-ACET 5/325MG TAB PO PRN (03:45)
[2020-10-03] MEDS ORDERED: ONDANSETRON HCL 4 MG/2 ML VIAL IV PRN (03:45)
[2020-10-03] MEDS ORDERED: DOCUSATE SOD 100 MG CAP PO PRN (03:45)
[2020-10-03] MEDS ORDERED: MORPHINE SULFATE INJECTION 2 MG/ML SYRG IV PRN (03:45)
[2020-10-03] MEDS ORDERED: NITROGLYCERIN 0.4 MG SL TAB SL PRN (03:45)
[2020-10-03] MEDS: SODIUM CHLORIDE 0.9% 1,000 ML IV SCH (03:45)
[2020-10-03] MEDS: ALBUTEROL SULF 2.5 MG/0.5ML(0.5%) NEB SOLN NEB SCH ×6 (04:40→22:26)
[2020-10-03] MEDS: IPRATROPIUM BROM 0.5 MG/2.5ML INH SOL NEB SCH ×6 (04:41→22:26)
[2020-10-03 06:55] LABS: Hematocrit 29.3 % (41.0-53.0); Hemoglobin 9.7 g/dL (13.5-17.5); Mean Corpuscular Hemoglobin 29.6 pg (28.0-32.0); Mean Corpuscular Hgb Conc. 33.2 g/dL (32.0-36.0); Mean Corpuscular Volume 89.1 fL (80.0-100.0); Red Blood Cells 3.29 10^6/uL (4.5-5.90); Red Cell Distribution Width 16.5 % (11.8-14.3); White Blood Cell 17.5 10^3/uL (4.4-10.8)
[2020-10-03 07:00] LABS: Basophils % (manual) 0 (0.0-2.0); Blast Cells 0; Eosinophils % (manual) 0 (0-7); Metamyelocytes % 0; Myelocytes % 0; Promyelocytes % 0; Reactive Lymphocytes 0
[2020-10-03 07:15] LABS: Albumin 2.5 g/dL (3.4-5.0); Calcium 7.3 mg/dL (8.5-10.1)
[2020-10-03 07:20] LABS: BUN/Creatinine Ratio 40.8; Bilirubin, Total 0.6 mg/dL (0.2-1.0); Total Protein 4.6 g/dL (6.4-8.2)
[2020-10-03 07:43] LABS: Band Neutrophils % (manual) 2; Lymphocytes % (manual) 5 (10.0-50.0); Monocytes % (manual) 3 (0-12)
[2020-10-03] MEDS: ASCORBIC ACID 500 MG TAB PO SCH ×2 (09:22→10:14)
[2020-10-03] MEDS: cefTRIAXone 1GM/50ML D5W 50 ML IV SCH (09:22)
[2020-10-03] MEDS: ZINC SULFATE 220mg CAP or TAB PO SCH (09:22)
[2020-10-03] MEDS: ASPirin 81 mg TAB PO SCH (09:22)
[2020-10-03] MEDS: HEPARIN SODIUM (PORCINE) 5000 UNITS/ML 1ML VIAL SC SCH ×2 (09:24→23:17)
[2020-10-03] MEDS ORDERED: FAMOTIDINE (10MG/ML) 2ML VL IV SCH (10:00)
[2020-10-03] MEDS ORDERED: CARVEDILOL 12.5 MG TAB PO SCH (10:00)
[2020-10-03] MEDS: CARVEDILOL 12.5 MG TAB PO SCH ×2 (10:16→22:00)
[2020-10-03] MEDS: MULTIPLE VITAMIN TAB PO SCH (10:19)
[2020-10-03 13:15] LABS: Urine Bacteria FEW /hpf (None Seen); Urine Blood 1+ /uL (Negative); Urine Budding Yeast MODERATE /hpf (None Seen); Urine Mucus FEW (None Seen); Urine Specific Gravity 1.025 (1.001-1.035); Urine WBC 354 /hpf (0 - 3)
[2020-10-03] MEDS ORDERED: guaiFENesin 200 MG/10 ML UD PO PRN (16:00)
[2020-10-03] MEDS: VANCOMYCIN 1GM/250ML 250 ML IV SCH (16:26)
[2020-10-03] MEDS: BUDESONIDE (INHALATION) 0.5 MG/2 ML NEB NEB SCH (19:04)
[2020-10-03] MEDS: DOPamine 1600MCG/ML D5W 250 ML IV SCH (20:00)
[2020-10-03] MEDS: MIDAZOLAM DRIP 50 mg/50mL 50 ML IV SCH (20:05)
[2020-10-03] MEDS ORDERED: fentaNYL Drip 2500mCg/250mlNS 0 ML IV ONE (20:12)
[2020-10-03] MEDS ORDERED: NOREPINEPHRINE 8 MG/250ML KIT 250 ML IV ONE (20:51)
[2020-10-03] MEDS: NOREPINEPHRINE 8 MG/250ML KIT 250 ML IV SCH (20:56)
[2020-10-03] MEDS: fentaNYL Drip 2500mCg/250mlNS 250 ML IV SCH (21:15)
[2020-10-03 21:20] LABS: Hematocrit 33.6 % (41.0-53.0); Hemoglobin 10.6 g/dL (13.5-17.5); Mean Corpuscular Hemoglobin 28.7 pg (28.0-32.0); Mean Corpuscular Hgb Conc. 31.6 g/dL (32.0-36.0); Mean Corpuscular Volume 90.8 fL (80.0-100.0); Red Cell Distribution Width 16.6 % (11.8-14.3); White Blood Cell 26.3 10^3/uL (4.4-10.8)
[2020-10-03 21:23] LABS: Basophils % (manual) 0 (0.0-2.0); Blast Cells 0; Eosinophils % (manual) 0 (0-7); Promyelocytes % 0
[2020-10-03] MEDS: Ensure HIGH Protein Chocolate 8oz Bottle PO SCH (21:30)
[2020-10-03 21:40] LABS: Albumin 2.4 g/dL (3.4-5.0); Calcium 7.2 mg/dL (8.5-10.1); Potassium 4.7 mmol/L (3.5-5.1)
[2020-10-03 21:47] LABS: INR 1.11 (0.9-1.15); Partial Thromboplastin Time 24.2 sec (23.0-31.2)
[2020-10-03 21:55] LABS: BUN/Creatinine Ratio 35.5; Bilirubin, Total 0.6 mg/dL (0.2-1.0); Total Protein 4.6 g/dL (6.4-8.2)
[2020-10-03] MEDS: APIXABAN 5 MG TAB PO SCH (22:00)
[2020-10-03] MEDS ORDERED: NITROFURANTOIN 100 mg CAP PO SCH (22:00)
[2020-10-03] MEDS: FLUTICASONE PROP NASAL SPR 0.05 % (50MCG) 16GM EACHNOSTRI SCH (22:00)
[2020-10-03] MEDS ORDERED: OXYBUTYNIN CHL 5 MG TAB PO SCH (22:00)
[2020-10-03] MEDS ORDERED: METOPROLOL TARTRATE 25 MG TAB PO SCH (22:00)
[2020-10-03] MEDS ORDERED: TERAZOSIN HCL 5 MG CAP PO SCH (22:00)
[2020-10-03 22:50] LABS: Band Neutrophils % (manual) 4; Lymphocytes % (manual) 1 (10.0-50.0); Metamyelocytes % 1; Monocytes % (manual) 5 (0-12); Myelocytes % 2
[2020-10-03 22:51] LABS: Reactive Lymphocytes 1
[2020-10-03] MEDS: BICALUTAMIDE 50 MG PO SCH (23:13)
[2020-10-03] MEDS: ATORVASTATIN 20 MG TAB PO SCH (23:16)
[2020-10-04] VITALS (106 sets, daily range): BP systolic 77–140; BP diastolic 40–81
[2020-10-04] MEDS: DOPamine 1600MCG/ML D5W 250 ML IV SCH ×3 (01:37→20:20)
[2020-10-04] MEDS: MIDAZOLAM DRIP 50 mg/50mL 50 ML IV SCH ×2 (01:41→23:08)
[2020-10-04] MEDS: IPRATROPIUM BROM 0.5 MG/2.5ML INH SOL NEB SCH ×6 (02:23→22:28)
[2020-10-04] MEDS: ALBUTEROL SULF 2.5 MG/0.5ML(0.5%) NEB SOLN NEB SCH ×6 (02:23→22:29)
[2020-10-04] MEDS: VANCOMYCIN 1GM/250ML 250 ML IV SCH (03:26)
[2020-10-04 03:32] LABS: Hematocrit 33.4 % (41.0-53.0); Hemoglobin 10.9 g/dL (13.5-17.5); Mean Corpuscular Hemoglobin 28.8 pg (28.0-32.0); Mean Corpuscular Hgb Conc. 32.6 g/dL (32.0-36.0); Mean Corpuscular Volume 88.2 fL (80.0-100.0); Red Blood Cells 3.79 10^6/uL (4.5-5.90); Red Cell Distribution Width 16.5 % (11.8-14.3); White Blood Cell 28.4 10^3/uL (4.4-10.8)
[2020-10-04 03:42] LABS: Basophils % (manual) 0 (0.0-2.0); Blast Cells 0; Eosinophils % (manual) 0 (0-7); Metamyelocytes % 0; Myelocytes % 0; Promyelocytes % 0; Reactive Lymphocytes 0
[2020-10-04 03:52] LABS: Albumin 2.3 g/dL (3.4-5.0); BUN/Creatinine Ratio 41.1; Calcium 7.5 mg/dL (8.5-10.1); Potassium 4.2 mmol/L (3.5-5.1)
[2020-10-04 03:57] LABS: Bilirubin, Total 0.9 mg/dL (0.2-1.0); Total Protein 4.7 g/dL (6.4-8.2)
[2020-10-04 04:55] LABS: Band Neutrophils % (manual) 3
[2020-10-04 04:56] LABS: Lymphocytes % (manual) 4 (10.0-50.0); Monocytes % (manual) 3 (0-12)
[2020-10-04] MEDS: BUDESONIDE (INHALATION) 0.5 MG/2 ML NEB NEB SCH ×2 (07:06→22:29)
[2020-10-04] MEDS: Ensure HIGH Protein Chocolate 8oz Bottle PO SCH ×3 (08:00→18:00)
[2020-10-04] MEDS: SODIUM CHLORIDE 0.9% 1,000 ML IV SCH ×2 (08:55→12:26)
[2020-10-04] MEDS: PANTOPRAZOLE 40 MG/10 ML VIAL INJ IV SCH (08:56)
[2020-10-04] MEDS: cefTRIAXone 1GM/50ML D5W 50 ML IV SCH (08:58)
[2020-10-04] MEDS ORDERED: PANTOPRAZOLE 40 MG TAB PO SCH (10:00)
[2020-10-04] MEDS ORDERED: POTASSIUM CHL 10 Meq TABLET PO SCH (10:00)
[2020-10-04] MEDS ORDERED: SPIRONOLACTONE 25 MG TAB PO SCH (10:00)
[2020-10-04] MEDS ORDERED: FUROSEMIDE 40 MG TAB PO SCH (10:00)
[2020-10-04] MEDS: ASPirin 81 mg TAB PO SCH (10:03)
[2020-10-04] MEDS: BICALUTAMIDE 50 MG PO SCH (10:03)
[2020-10-04] MEDS: FLUTICASONE PROP NASAL SPR 0.05 % (50MCG) 16GM EACHNOSTRI SCH ×2 (10:03→22:34)
[2020-10-04] MEDS: APIXABAN 5 MG TAB PO SCH ×2 (10:03→22:32)
[2020-10-04] MEDS: MULTIPLE VITAMIN TAB PO SCH (10:04)
[2020-10-04] MEDS: ZINC SULFATE 220mg CAP or TAB PO SCH (10:04)
[2020-10-04] MEDS: FLORASTOR (S. BOULARDII) 250 MG CAP PO SCH (10:04)
[2020-10-04] MEDS: ASCORBIC ACID 500 MG TAB PO SCH ×2 (10:04→22:32)
[2020-10-04] MEDS: CHOLECALCIFEROL (VITD3) 1,000UNIT=25mCg TAB PO SCH (10:04)
[2020-10-04] MEDS ORDERED: SODIUM CHLORIDE 0.9% 3,000 ML IV ONE (10:15)
[2020-10-04] MEDS: VASOPRESSIN 50 UNITS in D5W 5% 247.5 ML IV SCH ×2 (10:30→14:15)
[2020-10-04] MEDS ORDERED: VASOPRESSIN 20 UNIT/ML ONE (10:31)
[2020-10-04] MEDS ORDERED: EPINEPHrine HCL 1 MG/10 ML SYRG IV ONE (11:53)
[2020-10-04] MEDS ORDERED: SODIUM BICARBONATE 8.4% INJ 50ML SYRINGE IV ONE (11:53)
[2020-10-04] MEDS: MEROPENEM 1GM IVPB 100 ML IV SCH ×2 (13:50→22:47)
[2020-10-04] MEDS ORDERED: VANCOMYCIN 750mg/250ml 250 ML IV SCH (21:00)
[2020-10-04] MEDS: fentaNYL Drip 2500mCg/250mlNS 250 ML IV SCH (21:15)
[2020-10-04] MEDS: ATORVASTATIN 20 MG TAB PO SCH (22:33)
[2020-10-04] MEDS: methylPREDNISolone SOD SUCC 40 MG/ML VL IV SCH (22:33)
[2020-10-04] MEDS: NOREPINEPHRINE 8 MG/250ML KIT 250 ML IV SCH (22:35)
[2020-10-05] VITALS (102 sets, daily range): BP systolic 78–140; BP diastolic 45–75
[2020-10-05] MEDS: NOREPINEPHRINE 8 MG/250ML KIT 250 ML IV SCH (04:00)
[2020-10-05] MEDS: MIDAZOLAM DRIP 50 mg/50mL 50 ML IV SCH (04:01)
[2020-10-05 04:55] LABS: Hematocrit 32.9 % (41.0-53.0); Mean Corpuscular Hemoglobin 29.5 pg (28.0-32.0); Mean Corpuscular Hgb Conc. 33.4 g/dL (32.0-36.0); Mean Corpuscular Volume 88.5 fL (80.0-100.0); Red Blood Cells 3.71 10^6/uL (4.5-5.90); White Blood Cell 22.4 10^3/uL (4.4-10.8)
[2020-10-05 04:58] LABS: Basophils % (manual) 0 (0.0-2.0); Blast Cells 0; Eosinophils % (manual) 0 (0-7); Metamyelocytes % 0; Promyelocytes % 0; Reactive Lymphocytes 0
[2020-10-05 05:13] LABS: Albumin 2.4 g/dL (3.4-5.0); Calcium 7.4 mg/dL (8.5-10.1); Potassium 4.3 mmol/L (3.5-5.1)
[2020-10-05 05:19] LABS: BUN/Creatinine Ratio 37.7; Bilirubin, Total 0.8 mg/dL (0.2-1.0); Total Protein 5.1 g/dL (6.4-8.2)
[2020-10-05 05:32] LABS: Band Neutrophils % (manual) 3; Lymphocytes % (manual) 1 (10.0-50.0); Monocytes % (manual) 1 (0-12); Myelocytes % 1
[2020-10-05] MEDS: SODIUM CHLORIDE 0.9% 1,000 ML IV SCH ×2 (05:45→22:32)
[2020-10-05] MEDS: MEROPENEM 1GM IVPB 100 ML IV SCH ×3 (05:54→22:39)
[2020-10-05] MEDS: BUDESONIDE (INHALATION) 0.5 MG/2 ML NEB NEB SCH ×2 (06:10→18:15)
[2020-10-05] MEDS: IPRATROPIUM BROM 0.5 MG/2.5ML INH SOL NEB SCH ×5 (06:10→21:46)
[2020-10-05] MEDS: ALBUTEROL SULF 2.5 MG/0.5ML(0.5%) NEB SOLN NEB SCH ×5 (06:10→21:46)
[2020-10-05] MEDS: Ensure HIGH Protein Chocolate 8oz Bottle PO SCH ×3 (08:00→18:00)
[2020-10-05] MEDS: FLUTICASONE PROP NASAL SPR 0.05 % (50MCG) 16GM EACHNOSTRI SCH ×2 (09:28→22:00)
[2020-10-05] MEDS: PANTOPRAZOLE 40 MG/10 ML VIAL INJ IV SCH (09:28)
[2020-10-05] MEDS: ASPirin 81 mg TAB PO SCH (09:28)
[2020-10-05] MEDS: methylPREDNISolone SOD SUCC 40 MG/ML VL IV SCH ×2 (09:28→22:12)
[2020-10-05] MEDS: ZINC SULFATE 220mg CAP or TAB PO SCH (09:29)
[2020-10-05] MEDS: APIXABAN 5 MG TAB PO SCH ×2 (09:29→22:12)
[2020-10-05] MEDS: ASCORBIC ACID 500 MG TAB PO SCH ×2 (09:29→22:12)
[2020-10-05] MEDS: BICALUTAMIDE 50 MG PO SCH (09:29)
[2020-10-05] MEDS: FLORASTOR (S. BOULARDII) 250 MG CAP PO SCH (09:29)
[2020-10-05] MEDS: MULTIPLE VITAMIN TAB PO SCH (09:29)
[2020-10-05] MEDS: CHOLECALCIFEROL (VITD3) 1,000UNIT=25mCg TAB PO SCH (09:29)
[2020-10-05] MEDS: DOPamine 1600MCG/ML D5W 250 ML IV SCH (11:40)
[2020-10-05] MEDS: fentaNYL Drip 2500mCg/250mlNS 250 ML IV SCH (21:15)
[2020-10-05] MEDS: VANCOMYCIN 1GM/250ML 250 ML IV SCH (21:29)
[2020-10-05] MEDS: ATORVASTATIN 20 MG TAB PO SCH (22:12)
[2020-10-06] VITALS (96 sets, daily range): BP systolic 82–128; BP diastolic 47–81
[2020-10-06] MEDS: MIDAZOLAM DRIP 50 mg/50mL 50 ML IV SCH (02:48)
[2020-10-06] MEDS: DOPamine 1600MCG/ML D5W 250 ML IV SCH ×2 (03:00→18:20)
[2020-10-06 04:06] LABS: Hematocrit 28.1 % (41.0-53.0); Hemoglobin 9.7 g/dL (13.5-17.5); Mean Corpuscular Hgb Conc. 34.3 g/dL (32.0-36.0); Mean Corpuscular Volume 87.3 fL (80.0-100.0); Red Blood Cells 3.22 10^6/uL (4.5-5.90); White Blood Cell 18.1 10^3/uL (4.4-10.8)
[2020-10-06 04:23] LABS: Calcium 7.8 mg/dL (8.5-10.1); Potassium 4.2 mmol/L (3.5-5.1)
[2020-10-06 04:25] LABS: BUN/Creatinine Ratio 40.2; Basophils % (manual) 0 (0.0-2.0); Blast Cells 0; Eosinophils % (manual) 0 (0-7); Metamyelocytes % 0; Myelocytes % 0; Promyelocytes % 0; Reactive Lymphocytes 0
[2020-10-06] MEDS: IPRATROPIUM BROM 0.5 MG/2.5ML INH SOL NEB SCH ×5 (06:04→21:50)
[2020-10-06] MEDS: ALBUTEROL SULF 2.5 MG/0.5ML(0.5%) NEB SOLN NEB SCH ×5 (06:04→21:21)
[2020-10-06] MEDS: BUDESONIDE (INHALATION) 0.5 MG/2 ML NEB NEB SCH ×2 (06:04→18:09)
[2020-10-06] MEDS: MEROPENEM 1GM IVPB 100 ML IV SCH ×3 (06:27→21:21)
[2020-10-06 06:38] LABS: Band Neutrophils % (manual) 2; Lymphocytes % (manual) 2 (10.0-50.0); Monocytes % (manual) 1 (0-12)
[2020-10-06] MEDS: Ensure HIGH Protein Chocolate 8oz Bottle PO SCH ×3 (08:00→18:00)
[2020-10-06] MEDS: methylPREDNISolone SOD SUCC 40 MG/ML VL IV SCH ×2 (10:00→21:22)
[2020-10-06] MEDS: FLUTICASONE PROP NASAL SPR 0.05 % (50MCG) 16GM EACHNOSTRI SCH (10:00)
[2020-10-06] MEDS: ZINC SULFATE 220mg CAP or TAB PO SCH (10:01)
[2020-10-06] MEDS: FLORASTOR (S. BOULARDII) 250 MG CAP PO SCH (10:01)
[2020-10-06] MEDS: PANTOPRAZOLE 40 MG/10 ML VIAL INJ IV SCH (10:01)
[2020-10-06] MEDS: APIXABAN 5 MG TAB PO SCH ×2 (10:01→21:22)
[2020-10-06] MEDS: MULTIPLE VITAMIN TAB PO SCH (10:01)
[2020-10-06] MEDS: ASPirin 81 mg TAB PO SCH (10:01)
[2020-10-06] MEDS: BICALUTAMIDE 50 MG PO SCH (10:01)
[2020-10-06] MEDS: ASCORBIC ACID 500 MG TAB PO SCH ×2 (10:02→21:23)
[2020-10-06] MEDS: VASOPRESSIN 50 UNITS in D5W 5% 247.5 ML IV SCH (10:02)
[2020-10-06] MEDS: CHOLECALCIFEROL (VITD3) 1,000UNIT=25mCg TAB PO SCH (10:02)
[2020-10-06] MEDS: SODIUM CHLORIDE 0.9% 1,000 ML IV SCH ×2 (15:05→21:23)
[2020-10-06] MEDS ORDERED: MILK OF MAGNESIA 30ML SUSP PO ONE (16:45)
[2020-10-06] MEDS ORDERED: MILK OF MAGNESIA 30ML SUSP PO PRN (16:45)
[2020-10-06] MEDS: fentaNYL Drip 2500mCg/250mlNS 250 ML IV SCH (21:15)
[2020-10-06] MEDS: VANCOMYCIN 1GM/250ML 250 ML IV SCH (21:19)
[2020-10-06] MEDS: NOREPINEPHRINE 8 MG/250ML KIT 250 ML IV SCH (21:21)
[2020-10-06] MEDS: ATORVASTATIN 20 MG TAB PO SCH (21:24)
[2020-10-07] VITALS (34 sets, daily range): BP systolic 97–177; BP diastolic 55–83
[2020-10-07 04:06] LABS: Hemoglobin 9.9 g/dL (13.5-17.5); Mean Corpuscular Hemoglobin 28.9 pg (28.0-32.0); Mean Corpuscular Hgb Conc. 33.1 g/dL (32.0-36.0); Mean Corpuscular Volume 87.3 fL (80.0-100.0); Red Blood Cells 3.44 10^6/uL (4.5-5.90); Red Cell Distribution Width 16.2 % (11.8-14.3); White Blood Cell 16.4 10^3/uL (4.4-10.8)
[2020-10-07 04:17] LABS: Basophils % (manual) 0 (0.0-2.0); Blast Cells 0; Eosinophils % (manual) 0 (0-7); Metamyelocytes % 0; Myelocytes % 0; Promyelocytes % 0; Reactive Lymphocytes 0
[2020-10-07 04:30] LABS: Potassium 4.5 mmol/L (3.5-5.1)
[2020-10-07 04:32] LABS: BUN/Creatinine Ratio 45.4
[2020-10-07] MEDS: MEROPENEM 1GM IVPB 100 ML IV SCH ×3 (06:00→21:37)
[2020-10-07] MEDS: ALBUTEROL SULF 2.5 MG/0.5ML(0.5%) NEB SOLN NEB SCH ×4 (06:01→18:50)
[2020-10-07] MEDS: IPRATROPIUM BROM 0.5 MG/2.5ML INH SOL NEB SCH ×4 (06:02→18:50)
[2020-10-07] MEDS: BUDESONIDE (INHALATION) 0.5 MG/2 ML NEB NEB SCH ×2 (06:02→18:50)
[2020-10-07 06:25] LABS: Band Neutrophils % (manual) 4; Lymphocytes % (manual) 2 (10.0-50.0); Monocytes % (manual) 2 (0-12)
[2020-10-07] MEDS: Ensure HIGH Protein Chocolate 8oz Bottle PO SCH ×3 (08:00→18:00)
[2020-10-07] MEDS: DOPamine 1600MCG/ML D5W 250 ML IV SCH (09:40)
[2020-10-07] MEDS ORDERED: LORazepam 2MG/ML-1ML VIAL IV ONE (09:45)
[2020-10-07] MEDS: FLUTICASONE PROP NASAL SPR 0.05 % (50MCG) 16GM EACHNOSTRI SCH ×3 (10:00→21:36)
[2020-10-07] MEDS: VASOPRESSIN 50 UNITS in D5W 5% 247.5 ML IV SCH (10:30)
[2020-10-07] MEDS: ZINC SULFATE 220mg CAP or TAB PO SCH (10:44)
[2020-10-07] MEDS: ASPirin 81 mg TAB PO SCH (10:44)
[2020-10-07] MEDS: methylPREDNISolone SOD SUCC 40 MG/ML VL IV SCH ×2 (10:44→22:00)
[2020-10-07] MEDS: PANTOPRAZOLE 40 MG/10 ML VIAL INJ IV SCH (10:44)
[2020-10-07] MEDS: APIXABAN 5 MG TAB PO SCH ×2 (10:45→21:06)
[2020-10-07] MEDS: MULTIPLE VITAMIN TAB PO SCH (10:45)
[2020-10-07] MEDS: CHOLECALCIFEROL (VITD3) 1,000UNIT=25mCg TAB PO SCH (10:45)
[2020-10-07] MEDS: ASCORBIC ACID 500 MG TAB PO SCH ×2 (10:45→21:05)
[2020-10-07] MEDS: FLORASTOR (S. BOULARDII) 250 MG CAP PO SCH (10:45)
[2020-10-07] MEDS ORDERED: MORPHINE SULFATE INJECTION 2 MG/ML SYRG ONE (11:37)
[2020-10-07] MEDS: BICALUTAMIDE 50 MG PO SCH (11:59)
[2020-10-07] MEDS ORDERED: hydrALAZINE HCL 20 MG/ML VL ONE (16:51)
[2020-10-07] MEDS: fentaNYL Drip 2500mCg/250mlNS 250 ML IV SCH (17:46)
[2020-10-07] MEDS: MIDAZOLAM DRIP 50 mg/50mL 50 ML IV SCH (19:30)
[2020-10-07] MEDS: VANCOMYCIN 1GM/250ML 250 ML IV SCH (21:04)
[2020-10-07] MEDS: ATORVASTATIN 20 MG TAB PO SCH (21:05)
[2020-10-07] MEDS: NOREPINEPHRINE 8 MG/250ML KIT 250 ML IV SCH (21:15)
[2020-10-08] VITALS (82 sets, daily range): BP systolic 103–164; BP diastolic 30–79
[2020-10-08] MEDS: MEROPENEM 1GM IVPB 100 ML IV SCH ×3 (00:36→22:43)
[2020-10-08] MEDS: MIDAZOLAM DRIP 50 mg/50mL 50 ML IV SCH (00:37)
[2020-10-08] MEDS: SODIUM CHLORIDE 0.9% 1,000 ML IV SCH ×2 (00:48→16:41)
[2020-10-08] MEDS: DOPamine 1600MCG/ML D5W 250 ML IV SCH ×2 (01:00→08:46)
[2020-10-08 04:04] LABS: Hematocrit 26.9 % (41.0-53.0); Mean Corpuscular Hemoglobin 29.4 pg (28.0-32.0); Mean Corpuscular Hgb Conc. 33.5 g/dL (32.0-36.0); Mean Corpuscular Volume 87.6 fL (80.0-100.0); Red Blood Cells 3.07 10^6/uL (4.5-5.90); Red Cell Distribution Width 16.3 % (11.8-14.3); White Blood Cell 16.3 10^3/uL (4.4-10.8)
[2020-10-08 04:08] LABS: Basophils % (manual) 0 (0.0-2.0); Blast Cells 0; Eosinophils % (manual) 0 (0-7); Myelocytes % 0; Promyelocytes % 0; Reactive Lymphocytes 0
[2020-10-08 04:22] LABS: BUN/Creatinine Ratio 49.1; Calcium 7.4 mg/dL (8.5-10.1); Potassium 4.7 mmol/L (3.5-5.1)
[2020-10-08 05:09] LABS: Band Neutrophils % (manual) 1; Lymphocytes % (manual) 1 (10.0-50.0); Metamyelocytes % 1; Monocytes % (manual) 1 (0-12)
[2020-10-08] MEDS: fentaNYL Drip 2500mCg/250mlNS 250 ML IV SCH (05:30)
[2020-10-08] MEDS: ALBUTEROL SULF 2.5 MG/0.5ML(0.5%) NEB SOLN NEB SCH ×5 (06:16→22:10)
[2020-10-08] MEDS: IPRATROPIUM BROM 0.5 MG/2.5ML INH SOL NEB SCH ×5 (06:16→22:10)
[2020-10-08] MEDS: BUDESONIDE (INHALATION) 0.5 MG/2 ML NEB NEB SCH ×2 (06:17→22:10)
[2020-10-08] MEDS: Ensure HIGH Protein Chocolate 8oz Bottle PO SCH (08:00)
[2020-10-08] MEDS: VASOPRESSIN 50 UNITS in D5W 5% 247.5 ML IV SCH (08:45)
[2020-10-08] MEDS: PANTOPRAZOLE 40 MG/10 ML VIAL INJ IV SCH (09:38)
[2020-10-08] MEDS: MULTIPLE VITAMIN TAB PO SCH (09:38)
[2020-10-08] MEDS: ASPirin 81 mg TAB PO SCH (09:38)
[2020-10-08] MEDS: FLORASTOR (S. BOULARDII) 250 MG CAP PO SCH (09:38)
[2020-10-08] MEDS: ZINC SULFATE 220mg CAP or TAB PO SCH (09:38)
[2020-10-08] MEDS: ASCORBIC ACID 500 MG TAB PO SCH ×2 (09:38→21:08)
[2020-10-08] MEDS: methylPREDNISolone SOD SUCC 40 MG/ML VL IV SCH ×2 (09:38→21:05)
[2020-10-08] MEDS: APIXABAN 5 MG TAB PO SCH ×2 (09:39→21:08)
[2020-10-08] MEDS: CHOLECALCIFEROL (VITD3) 1,000UNIT=25mCg TAB PO SCH (09:39)
[2020-10-08] MEDS: FLUTICASONE PROP NASAL SPR 0.05 % (50MCG) 16GM EACHNOSTRI SCH ×2 (09:49→22:00)
[2020-10-08] MEDS: BICALUTAMIDE 50 MG PO SCH (09:59)
[2020-10-08] MEDS: hydrALAZINE HCL 20 MG/ML VL IV PRN ×2 (10:12→16:39)
[2020-10-08] MEDS ORDERED: FLUCONAZOLE 200MG/100ML 100 ML IV ONE (10:45)
[2020-10-08] MEDS: NOREPINEPHRINE 8 MG/250ML KIT 250 ML IV SCH (11:05)
[2020-10-08] MEDS ORDERED: MIDAZOLAM HCL 2MG/2ML 2ml VIAL (1mg/ml) IV PRN (15:30)
[2020-10-08] MEDS ORDERED: MORPHINE SULFATE INJECTION 2 MG/ML SYRG IV PRN (18:45)
[2020-10-08] MEDS: VANCOMYCIN 1GM/250ML 250 ML IV SCH (21:07)
[2020-10-08] MEDS: ATORVASTATIN 20 MG TAB PO SCH (21:07)
[2020-10-09] VITALS (79 sets, daily range): BP systolic 85–203; BP diastolic 39–81
[2020-10-09 04:45] LABS: Hematocrit 33.4 % (41.0-53.0); Hemoglobin 11.3 g/dL (13.5-17.5); Mean Corpuscular Hemoglobin 29.7 pg (28.0-32.0); Mean Corpuscular Hgb Conc. 33.7 g/dL (32.0-36.0); Mean Corpuscular Volume 88.1 fL (80.0-100.0); Red Cell Distribution Width 16.7 % (11.8-14.3); White Blood Cell 26.5 10^3/uL (4.4-10.8)
[2020-10-09 04:57] LABS: Basophils % (manual) 0 (0.0-2.0); Blast Cells 0; Eosinophils % (manual) 0 (0-7); Promyelocytes % 0; Reactive Lymphocytes 0
[2020-10-09 05:06] LABS: Albumin 2.4 g/dL (3.4-5.0); BUN/Creatinine Ratio 40.8; Bilirubin, Total 0.6 mg/dL (0.2-1.0); Calcium 8.1 mg/dL (8.5-10.1); Total Protein 5.4 g/dL (6.4-8.2)
[2020-10-09 05:10] LABS: Potassium 5.8 mmol/L (3.5-5.1)
[2020-10-09 05:27] LABS: Band Neutrophils % (manual) 1; Lymphocytes % (manual) 1 (10.0-50.0); Metamyelocytes % 2; Monocytes % (manual) 3 (0-12); Myelocytes % 1
[2020-10-09] MEDS: MEROPENEM 1GM IVPB 100 ML IV SCH ×3 (06:11→22:21)
[2020-10-09] MEDS: IPRATROPIUM BROM 0.5 MG/2.5ML INH SOL NEB SCH ×5 (06:18→21:52)
[2020-10-09] MEDS: BUDESONIDE (INHALATION) 0.5 MG/2 ML NEB NEB SCH ×2 (06:18→18:27)
[2020-10-09] MEDS: ALBUTEROL SULF 2.5 MG/0.5ML(0.5%) NEB SOLN NEB SCH ×5 (06:19→21:52)
[2020-10-09] MEDS ORDERED: SODIUM ZIRCONIUM CYCL 10 GM PAK PO ONE (07:00)
[2020-10-09] MEDS: DOPamine 1600MCG/ML D5W 250 ML IV SCH ×2 (07:40→22:22)
[2020-10-09] MEDS: APIXABAN 5 MG TAB PO SCH ×2 (08:17→22:21)
[2020-10-09] MEDS: methylPREDNISolone SOD SUCC 40 MG/ML VL IV SCH ×2 (08:17→22:21)
[2020-10-09] MEDS: FLUCONAZOLE 200MG/100ML 100 ML IV SCH (08:18)
[2020-10-09] MEDS: PANTOPRAZOLE 40 MG/10 ML VIAL INJ IV SCH (08:18)
[2020-10-09] MEDS: hydrALAZINE HCL 20 MG/ML VL IV PRN (08:18)
[2020-10-09] MEDS: BICALUTAMIDE 50 MG PO SCH (08:18)
[2020-10-09] MEDS: fentaNYL Drip 2500mCg/250mlNS 250 ML IV SCH (08:30)
[2020-10-09] MEDS: LABETALOL HCL 5 MG/ML 4ML SYRINGE IV PRN (08:56)
[2020-10-09] MEDS: VASOPRESSIN 50 UNITS in D5W 5% 247.5 ML IV SCH (10:18)
[2020-10-09] MEDS: ZINC SULFATE 220mg CAP or TAB PO SCH (10:22)
[2020-10-09] MEDS: ASCORBIC ACID 500 MG TAB PO SCH ×2 (10:22→22:22)
[2020-10-09] MEDS: MULTIPLE VITAMIN TAB PO SCH (10:22)
[2020-10-09] MEDS: FLORASTOR (S. BOULARDII) 250 MG CAP PO SCH (10:22)
[2020-10-09] MEDS: ASPirin 81 mg TAB PO SCH (10:22)
[2020-10-09] MEDS: CHOLECALCIFEROL (VITD3) 1,000UNIT=25mCg TAB PO SCH (10:23)
[2020-10-09] MEDS: SODIUM CHLORIDE 0.9% 1,000 ML IV SCH (11:55)
[2020-10-09] MEDS: Jevity 1.2 Cal/Fiber 1 Liter GT SCH (12:34)
[2020-10-09] MEDS: FLUTICASONE PROP NASAL SPR 0.05 % (50MCG) 16GM EACHNOSTRI SCH ×2 (14:14→22:21)
[2020-10-09 18:13] LABS: Urine Bacteria NONE SEEN /hpf (None Seen); Urine Blood 3+ /uL (Negative); Urine Budding Yeast MANY /hpf (None Seen); Urine Mucus FEW (None Seen); Urine Specific Gravity 1.018 (1.001-1.035); Urine WBC 201 /hpf (0 - 3)
[2020-10-09 18:37] LABS: Protein, Urine 421.9 mg/dL (0.0-11.9)
[2020-10-09 19:04] LABS: BUN/Creatinine Ratio 41.8; Calcium 7.8 mg/dL (8.5-10.1)
[2020-10-09 19:08] LABS: Potassium 5.7 mmol/L (3.5-5.1)
[2020-10-09] MEDS: MIDAZOLAM DRIP 50 mg/50mL 50 ML IV SCH (21:15)
[2020-10-09] MEDS: NOREPINEPHRINE 8 MG/250ML KIT 250 ML IV SCH (21:15)
[2020-10-09] MEDS: ATORVASTATIN 20 MG TAB PO SCH (22:22)
[2020-10-10] VITALS (107 sets, daily range): BP systolic 85–152; BP diastolic 42–92
[2020-10-10] MEDS: SODIUM CHLORIDE 0.9% 1,000 ML IV SCH ×2 (02:25→10:13)
[2020-10-10 04:07] LABS: Basophils # (auto) 0.1 10 ^3/uL (0-0.2); Basophils % (auto) 0.3 % (0.0-2.0); Eosinophils # (auto) 0 10 ^3/uL (0-0.8); Hematocrit 28.6 % (41.0-53.0); Hemoglobin 9.7 g/dL (13.5-17.5); Lymphocytes # (auto) 0.2 10 ^3/uL (0.4-5.4); Lymphocytes % (auto) 0.8 % (10.0-50.0); Mean Corpuscular Hemoglobin 29.7 pg (28.0-32.0); Mean Corpuscular Hgb Conc. 33.9 g/dL (32.0-36.0); Mean Corpuscular Volume 87.8 fL (80.0-100.0); Monocytes # (auto) 0.5 10 ^3/uL (0-1.3); Neutrophils # (auto) 23.8 10 ^3/uL (1.6-8.6); Neutrophils % (auto) 96.9 % (37.0-80.0); Nucleated Red Blood Cells % 0.1 %; Red Blood Cells 3.26 10^6/uL (4.5-5.90); Red Cell Distribution Width 16.9 % (11.8-14.3); White Blood Cell 24.5 10^3/uL (4.4-10.8)
[2020-10-10 04:27] LABS: Albumin 2.2 g/dL (3.4-5.0); BUN/Creatinine Ratio 44.1; Bilirubin, Total 0.6 mg/dL (0.2-1.0); Calcium 7.8 mg/dL (8.5-10.1); Phosphorus 6.2 mg/dL (2.5-4.90); Total Protein 4.7 g/dL (6.4-8.2); Uric Acid 8.2 mg/dL (3.5-7.2)
[2020-10-10 04:31] LABS: Potassium 5.9 mmol/L (3.5-5.1)
[2020-10-10] MEDS ORDERED: InsuLIN REG 1unit/0.01ml Soln (100units/ml) IV ONE (04:45)
[2020-10-10] MEDS ORDERED: SODIUM CHLORIDE 0.9% 500 ML IV ONE (04:45)
[2020-10-10] MEDS ORDERED: DEXTROSE (50%) 50ML SYRG IV ONE (04:45)
[2020-10-10] MEDS ORDERED: FUROSEMIDE 40 MG/4 ML VIAL IV ONE (04:45)
[2020-10-10] MEDS: MEROPENEM 1GM IVPB 100 ML IV SCH ×3 (05:49→21:34)
[2020-10-10] MEDS: NOREPINEPHRINE 8 MG/250ML KIT 250 ML IV SCH (06:40)
[2020-10-10] MEDS: fentaNYL Drip 2500mCg/250mlNS 250 ML IV SCH ×2 (06:42→21:43)
[2020-10-10] MEDS: FLUTICASONE PROP NASAL SPR 0.05 % (50MCG) 16GM EACHNOSTRI SCH ×2 (10:00→21:34)
[2020-10-10] MEDS: FLUCONAZOLE 200MG/100ML 100 ML IV SCH (10:09)
[2020-10-10] MEDS: ASPirin 81 mg TAB PO SCH (10:09)
[2020-10-10] MEDS: PANTOPRAZOLE 40 MG/10 ML VIAL INJ IV SCH (10:09)
[2020-10-10] MEDS: APIXABAN 5 MG TAB PO SCH ×2 (10:09→21:35)
[2020-10-10] MEDS: MULTIPLE VITAMIN TAB PO SCH (10:09)
[2020-10-10] MEDS: methylPREDNISolone SOD SUCC 40 MG/ML VL IV SCH ×2 (10:09→21:34)
[2020-10-10] MEDS: ZINC SULFATE 220mg CAP or TAB PO SCH (10:10)
[2020-10-10] MEDS: FLORASTOR (S. BOULARDII) 250 MG CAP PO SCH (10:10)
[2020-10-10] MEDS: ASCORBIC ACID 500 MG TAB PO SCH ×2 (10:10→21:35)
[2020-10-10] MEDS: BICALUTAMIDE 50 MG PO SCH (10:11)
[2020-10-10] MEDS: DOPamine 1600MCG/ML D5W 250 ML IV SCH (10:12)
[2020-10-10] MEDS: VASOPRESSIN 50 UNITS in D5W 5% 247.5 ML IV SCH (10:12)
[2020-10-10] MEDS: CHOLECALCIFEROL (VITD3) 1,000UNIT=25mCg TAB PO SCH (10:12)
[2020-10-10] MEDS: IPRATROPIUM BROM 0.5 MG/2.5ML INH SOL NEB SCH ×3 (12:19→22:13)
[2020-10-10] MEDS: BUDESONIDE (INHALATION) 0.5 MG/2 ML NEB NEB SCH ×2 (12:19→22:13)
[2020-10-10] MEDS: ALBUTEROL SULF 2.5 MG/0.5ML(0.5%) NEB SOLN NEB SCH ×4 (12:19→22:13)
[2020-10-10] MEDS ORDERED: BUMETANIDE INJECTION 25 MG in GIVE UN-DILUTED 0 ML IV SCH (14:15)
[2020-10-10] MEDS ORDERED: BUMETANIDE 2.5mg/10ml (0.25 mg/ml) INJ IV ONE (14:15)
[2020-10-10] MEDS ORDERED: BUMETANIDE INJECTION 10 ML ONE (14:41)
[2020-10-10] MEDS: Jevity 1.2 Cal/Fiber 1 Liter GT SCH (14:56)
[2020-10-10 18:48] LABS: BUN/Creatinine Ratio 43.6; Calcium 7.6 mg/dL (8.5-10.1)
[2020-10-10 18:51] LABS: Potassium 5.9 mmol/L (3.5-5.1)
[2020-10-10] MEDS: MIDAZOLAM DRIP 50 mg/50mL 50 ML IV SCH (21:15)
[2020-10-10] MEDS: ATORVASTATIN 20 MG TAB PO SCH (21:35)
[2020-10-11] VITALS (60 sets, daily range): BP systolic 34–149; BP diastolic 16–100
[2020-10-11 03:51] LABS: Hematocrit 28.1 % (41.0-53.0); Hemoglobin 9.4 g/dL (13.5-17.5); Mean Corpuscular Hemoglobin 29.7 pg (28.0-32.0); Mean Corpuscular Hgb Conc. 33.6 g/dL (32.0-36.0); Mean Corpuscular Volume 88.6 fL (80.0-100.0); Red Blood Cells 3.18 10^6/uL (4.5-5.90); White Blood Cell 27.4 10^3/uL (4.4-10.8)
[2020-10-11 03:53] LABS: Band Neutrophils % (manual) 0; Basophils % (manual) 0 (0.0-2.0); Blast Cells 0; Eosinophils % (manual) 0 (0-7); Metamyelocytes % 0; Myelocytes % 0; Promyelocytes % 0; Reactive Lymphocytes 0
[2020-10-11 04:11] LABS: Albumin 2.2 g/dL (3.4-5.0); Calcium 7.7 mg/dL (8.5-10.1)
[2020-10-11 04:15] LABS: BUN/Creatinine Ratio 42.1; Bilirubin, Total 0.6 mg/dL (0.2-1.0); Total Protein 4.9 g/dL (6.4-8.2)
[2020-10-11 04:20] LABS: Lymphocytes % (manual) 1 (10.0-50.0)
[2020-10-11 04:21] LABS: Monocytes % (manual) 1 (0-12)
[2020-10-11 04:31] LABS: Potassium 6.3 mmol/L (3.5-5.1)
[2020-10-11] MEDS ORDERED: InsuLIN REG 1unit/0.01ml Soln (100units/ml) IV ONE ×3 (04:45→09:15)
[2020-10-11] MEDS ORDERED: DEXTROSE (50%) 50ML SYRG IV ONE ×2 (04:45→09:15)
[2020-10-11] MEDS ORDERED: CALCIUM GLUC 1,000mg/50ml-NS 50 ML IV ONE ×5 (04:45→09:15)
[2020-10-11] MEDS: DOPamine 1600MCG/ML D5W 250 ML IV SCH (04:55)
[2020-10-11] MEDS ORDERED: DEXTROSE 50% SYRINGE 50 ML IV ONE (05:35)
[2020-10-11] MEDS: MEROPENEM 1GM IVPB 100 ML IV SCH ×2 (05:45→18:00)
[2020-10-11] MEDS: BUDESONIDE (INHALATION) 0.5 MG/2 ML NEB NEB SCH ×2 (06:12→18:54)
[2020-10-11] MEDS: ALBUTEROL SULF 2.5 MG/0.5ML(0.5%) NEB SOLN NEB SCH ×5 (06:12→22:30)
[2020-10-11] MEDS: IPRATROPIUM BROM 0.5 MG/2.5ML INH SOL NEB SCH ×5 (06:12→22:30)
[2020-10-11] MEDS ORDERED: SODIUM CHL 0.9% 1000 ML BAG XX ONE (09:15)
[2020-10-11] MEDS: ASCORBIC ACID 500 MG TAB PO SCH ×2 (10:00→22:00)
[2020-10-11] MEDS: ALBUMIN 25% 100 ML IV SCH ×3 (10:00→12:00)
[2020-10-11] MEDS: FLUTICASONE PROP NASAL SPR 0.05 % (50MCG) 16GM EACHNOSTRI SCH ×2 (10:00→22:00)
[2020-10-11] MEDS: BICALUTAMIDE 50 MG PO SCH (10:00)
[2020-10-11] MEDS: VASOPRESSIN 50 UNITS in D5W 5% 247.5 ML IV SCH (10:30)
[2020-10-11] MEDS ORDERED: HEPARIN SODIUM (PORCINE) 5000 UNITS/ML 1ML VIAL SC ONE (11:00)
[2020-10-11] MEDS ORDERED: HEPARIN SODIUM (PORCINE) 5000 UNITS/ML 1ML VIAL IV ONE ×2 (11:00)
[2020-10-11] MEDS: FLUCONAZOLE 200MG/100ML 100 ML IV SCH (11:24)
[2020-10-11] MEDS: PANTOPRAZOLE 40 MG/10 ML VIAL INJ IV SCH (11:24)
[2020-10-11] MEDS: ZINC SULFATE 220mg CAP or TAB PO SCH (11:25)
[2020-10-11] MEDS: ASPirin 81 mg TAB PO SCH (11:25)
[2020-10-11] MEDS: methylPREDNISolone SOD SUCC 40 MG/ML VL IV SCH ×2 (11:25→22:00)
[2020-10-11] MEDS: FLORASTOR (S. BOULARDII) 250 MG CAP PO SCH (11:28)
[2020-10-11] MEDS: CHOLECALCIFEROL (VITD3) 1,000UNIT=25mCg TAB PO SCH (11:28)
[2020-10-11] MEDS: APIXABAN 5 MG TAB PO SCH ×2 (11:28→22:00)
[2020-10-11] MEDS: MULTIPLE VITAMIN TAB PO SCH (11:28)
[2020-10-11] MEDS: SODIUM CHLORIDE 0.9% 1,000 ML IV SCH ×2 (11:45→12:57)
[2020-10-11 14:04] LABS: Hepatitis A Ab IgM Negative; Hepatitis B Core IgM Negative; Hepatitis B Surface Antigen Negative (Negative); Hepatitis C Antibody Negative (Negative)
[2020-10-11 16:13] LABS: Calcium 7.7 mg/dL (8.5-10.1); Potassium 4.3 mmol/L (3.5-5.1)
[2020-10-11 16:16] LABS: BUN/Creatinine Ratio 37.2; Magnesium 2.6 mg/dL (1.6-2.6); Phosphorus 4.9 mg/dL (2.5-4.90)
[2020-10-11] MEDS: ATORVASTATIN 20 MG TAB PO SCH (22:00)
[2020-10-12] VITALS (54 sets, daily range): BP systolic 78–147; BP diastolic 29–101
[2020-10-12] MEDS: MEROPENEM 1GM IVPB 100 ML IV SCH ×2 (05:56→18:00)
[2020-10-12 06:11] LABS: Hematocrit 23.4 % (41.0-53.0); Hemoglobin 7.9 g/dL (13.5-17.5)
[2020-10-12 06:14] LABS: Mean Corpuscular Hemoglobin 29.3 pg (28.0-32.0); Mean Corpuscular Hgb Conc. 33.8 g/dL (32.0-36.0); Mean Corpuscular Volume 86.7 fL (80.0-100.0); Red Cell Distribution Width 16.3 % (11.8-14.3); White Blood Cell 21.5 10^3/uL (4.4-10.8)
[2020-10-12] MEDS: ALBUTEROL SULF 2.5 MG/0.5ML(0.5%) NEB SOLN NEB SCH ×5 (06:18→22:16)
[2020-10-12] MEDS: IPRATROPIUM BROM 0.5 MG/2.5ML INH SOL NEB SCH ×5 (06:19→22:17)
[2020-10-12] MEDS: BUDESONIDE (INHALATION) 0.5 MG/2 ML NEB NEB SCH ×2 (06:19→18:37)
[2020-10-12 06:36] LABS: Potassium 4.6 mmol/L (3.5-5.1)
[2020-10-12 06:48] LABS: BUN/Creatinine Ratio 36.3; Calcium 7.8 mg/dL (8.5-10.1)
[2020-10-12 06:49] LABS: Band Neutrophils % (manual) 0; Basophils % (manual) 0 (0.0-2.0); Blast Cells 0; Eosinophils % (manual) 0 (0-7); Metamyelocytes % 0; Myelocytes % 0; Promyelocytes % 0; Reactive Lymphocytes 0
[2020-10-12 07:52] LABS: Lymphocytes % (manual) 1 (10.0-50.0); Monocytes % (manual) 3 (0-12)
[2020-10-12] MEDS: LABETALOL HCL 5 MG/ML 4ML SYRINGE IV PRN ×2 (08:31→16:48)
[2020-10-12] MEDS: PANTOPRAZOLE 40 MG/10 ML VIAL INJ IV SCH (10:00)
[2020-10-12] MEDS: MULTIPLE VITAMIN TAB PO SCH (10:00)
[2020-10-12] MEDS: methylPREDNISolone SOD SUCC 40 MG/ML VL IV SCH (10:00)
[2020-10-12] MEDS: ZINC SULFATE 220mg CAP or TAB PO SCH (10:00)
[2020-10-12] MEDS: BICALUTAMIDE 50 MG PO SCH (10:00)
[2020-10-12] MEDS: FLUTICASONE PROP NASAL SPR 0.05 % (50MCG) 16GM EACHNOSTRI SCH ×2 (10:00→22:50)
[2020-10-12] MEDS: ASPirin 81 mg TAB PO SCH (10:00)
[2020-10-12] MEDS: CHOLECALCIFEROL (VITD3) 1,000UNIT=25mCg TAB PO SCH (10:00)
[2020-10-12] MEDS: APIXABAN 5 MG TAB PO SCH ×2 (10:00→22:50)
[2020-10-12] MEDS: ASCORBIC ACID 500 MG TAB PO SCH ×2 (11:28→22:49)
[2020-10-12] MEDS: FLORASTOR (S. BOULARDII) 250 MG CAP PO SCH (11:49)
[2020-10-12] MEDS ORDERED: FUROSEMIDE 40 MG/4 ML VIAL IV ONE (18:00)
[2020-10-12] MEDS: ALBUMIN 25% 50 ML IV SCH (18:00)
[2020-10-12] MEDS: ATORVASTATIN 20 MG TAB PO SCH (22:50)
[2020-10-13] VITALS (92 sets, daily range): BP systolic 90–173; BP diastolic 34–94
[2020-10-13] MEDS: ALBUMIN 25% 50 ML IV SCH ×2 (02:00→09:06)
[2020-10-13] MEDS: DOPamine 1600MCG/ML D5W 250 ML IV SCH ×2 (03:40→15:57)
[2020-10-13 04:21] LABS: Basophils # (auto) 0 10 ^3/uL (0-0.2); Eosinophils # (auto) 0 10 ^3/uL (0-0.8); Eosinophils % (auto) 0.1 % (0.0-7.0); Hemoglobin 7.2 g/dL (13.5-17.5)
[2020-10-13 04:23] LABS: Hematocrit 20.8 % (41.0-53.0); Lymphocytes # (auto) 0.3 10 ^3/uL (0.4-5.4); Lymphocytes % (auto) 1.5 % (10.0-50.0); Mean Corpuscular Hemoglobin 29.9 pg (28.0-32.0); Mean Corpuscular Hgb Conc. 34.6 g/dL (32.0-36.0); Mean Corpuscular Volume 86.4 fL (80.0-100.0); Monocytes # (auto) 0.7 10 ^3/uL (0-1.3); Monocytes % (auto) 4.2 % (0.0-12.0); Neutrophils % (auto) 94.2 % (37.0-80.0); Red Cell Distribution Width 16.3 % (11.8-14.3); White Blood Cell 16.9 10^3/uL (4.4-10.8)
[2020-10-13 04:59] LABS: BUN/Creatinine Ratio 39.1; Calcium 7.6 mg/dL (8.5-10.1); Potassium 4.6 mmol/L (3.5-5.1)
[2020-10-13] MEDS: IPRATROPIUM BROM 0.5 MG/2.5ML INH SOL NEB SCH ×5 (06:18→22:09)
[2020-10-13] MEDS: ALBUTEROL SULF 2.5 MG/0.5ML(0.5%) NEB SOLN NEB SCH ×5 (06:18→22:09)
[2020-10-13] MEDS: BUDESONIDE (INHALATION) 0.5 MG/2 ML NEB NEB SCH ×2 (06:18→18:16)
[2020-10-13] MEDS: MEROPENEM 1GM IVPB 100 ML IV SCH ×2 (06:42→18:17)
[2020-10-13] MEDS: MIDAZOLAM DRIP 50 mg/50mL 50 ML IV SCH (07:31)
[2020-10-13] MEDS: VASOPRESSIN 50 UNITS in D5W 5% 247.5 ML IV SCH (07:31)
[2020-10-13] MEDS: NOREPINEPHRINE 8 MG/250ML KIT 250 ML IV SCH (07:31)
[2020-10-13] MEDS: fentaNYL Drip 2500mCg/250mlNS 250 ML IV SCH ×2 (07:32→15:56)
[2020-10-13] MEDS: PANTOPRAZOLE 40 MG/10 ML VIAL INJ IV SCH (09:05)
[2020-10-13] MEDS: ASPirin 81 mg TAB PO SCH ×2 (09:06→10:00)
[2020-10-13] MEDS: APIXABAN 5 MG TAB PO SCH ×3 (09:06→22:00)
[2020-10-13] MEDS: ASCORBIC ACID 500 MG TAB PO SCH ×3 (09:06→22:00)
[2020-10-13] MEDS: CHOLECALCIFEROL (VITD3) 1,000UNIT=25mCg TAB PO SCH ×2 (09:07→10:00)
[2020-10-13] MEDS: methylPREDNISolone SOD SUCC 40 MG/ML VL IV SCH (09:07)
[2020-10-13] MEDS: MULTIPLE VITAMIN TAB PO SCH ×2 (09:07→10:00)
[2020-10-13] MEDS: FLORASTOR (S. BOULARDII) 250 MG CAP PO SCH ×2 (09:07→10:00)
[2020-10-13] MEDS: LABETALOL HCL 5 MG/ML 4ML SYRINGE IV PRN (09:08)
[2020-10-13] MEDS: ZINC SULFATE 220mg CAP or TAB PO SCH ×2 (09:08→10:00)
[2020-10-13] MEDS: BICALUTAMIDE 50 MG PO SCH (09:08)
[2020-10-13] MEDS ORDERED: LIDOCAINE 2% JELLY 11ml (GLYDO) UR ONE (13:00)
[2020-10-13] MEDS: FLUTICASONE PROP NASAL SPR 0.05 % (50MCG) 16GM EACHNOSTRI SCH ×2 (15:04→22:00)
[2020-10-13] MEDS: Jevity 1.2 Cal/Fiber 1 Liter GT SCH (15:57)
[2020-10-13] MEDS ORDERED: FUROSEMIDE 40 MG/4 ML VIAL IV ONE (16:30)
[2020-10-13] MEDS: ATORVASTATIN 20 MG TAB PO SCH (22:00)
[2020-10-14] VITALS (90 sets, daily range): BP systolic 90–177; BP diastolic 33–92
[2020-10-14 04:12] LABS: Basophils # (auto) 0 10 ^3/uL (0-0.2); Basophils % (auto) 0.1 % (0.0-2.0); Eosinophils # (auto) 0 10 ^3/uL (0-0.8); Eosinophils % (auto) 0.1 % (0.0-7.0); Hemoglobin 7.2 g/dL (13.5-17.5); Lymphocytes # (auto) 0.2 10 ^3/uL (0.4-5.4); Lymphocytes % (auto) 2.1 % (10.0-50.0); Mean Corpuscular Hemoglobin 28.9 pg (28.0-32.0); Mean Corpuscular Hgb Conc. 34.2 g/dL (32.0-36.0); Mean Corpuscular Volume 84.6 fL (80.0-100.0); Monocytes # (auto) 0.6 10 ^3/uL (0-1.3); Neutrophils # (auto) 10.4 10 ^3/uL (1.6-8.6); Neutrophils % (auto) 92.7 % (37.0-80.0); Red Blood Cells 2.49 10^6/uL (4.5-5.90); Red Cell Distribution Width 16.8 % (11.8-14.3); White Blood Cell 11.2 10^3/uL (4.4-10.8)
[2020-10-14 04:31] LABS: BUN/Creatinine Ratio 43.4; Calcium 7.4 mg/dL (8.5-10.1); Potassium 4.2 mmol/L (3.5-5.1)
[2020-10-14] MEDS: MEROPENEM 1GM IVPB 100 ML IV SCH ×2 (05:30→18:05)
[2020-10-14] MEDS: BUDESONIDE (INHALATION) 0.5 MG/2 ML NEB NEB SCH ×2 (06:53→18:48)
[2020-10-14] MEDS: ALBUTEROL SULF 2.5 MG/0.5ML(0.5%) NEB SOLN NEB SCH ×5 (06:53→22:12)
[2020-10-14] MEDS: IPRATROPIUM BROM 0.5 MG/2.5ML INH SOL NEB SCH ×5 (06:53→22:11)
[2020-10-14] MEDS: BICALUTAMIDE 50 MG PO SCH ×2 (10:00→18:39)
[2020-10-14] MEDS: ASPirin 81 mg TAB PO SCH (10:00)
[2020-10-14] MEDS: DOPamine 1600MCG/ML D5W 250 ML IV SCH (10:20)
[2020-10-14] MEDS: VASOPRESSIN 50 UNITS in D5W 5% 247.5 ML IV SCH (10:30)
[2020-10-14] MEDS ORDERED: AMIODARONE HCL 200 MG TAB PO ONE (11:00)
[2020-10-14] MEDS ORDERED: DOCUSATE ORAL LIQUID 100 MG/10 ML UD GT ONE (11:00)
[2020-10-14] MEDS: fentaNYL Drip 2500mCg/250mlNS 250 ML IV SCH ×2 (11:11→14:42)
[2020-10-14] MEDS: methylPREDNISolone SOD SUCC 40 MG/ML VL IV SCH (12:06)
[2020-10-14] MEDS: PANTOPRAZOLE 40 MG/10 ML VIAL INJ IV SCH (12:06)
[2020-10-14] MEDS: MIDAZOLAM DRIP 50 mg/50mL 50 ML IV SCH (12:07)
[2020-10-14] MEDS ORDERED: FUROSEMIDE 100 MG/10ML VIAL IV SCH (14:00)
[2020-10-14] MEDS: Jevity 1.2 Cal/Fiber 1 Liter GT SCH (14:42)
[2020-10-14] MEDS: FUROSEMIDE 100 MG/10ML VIAL IV SCH (18:05)
[2020-10-14] MEDS: NOREPINEPHRINE 8 MG/250ML KIT 250 ML IV SCH (21:15)
[2020-10-14] MEDS: ATORVASTATIN 20 MG TAB PO SCH (21:32)
[2020-10-14] MEDS: SENNA 8.6 MG TAB PO SCH (21:33)
[2020-10-15] VITALS (68 sets, daily range): BP systolic 96–167; BP diastolic 40–112
[2020-10-15] MEDS: DOPamine 1600MCG/ML D5W 250 ML IV SCH ×2 (01:40→17:00)
[2020-10-15 04:22] LABS: Eosinophils # (auto) 0 10 ^3/uL (0-0.8); Eosinophils % (auto) 0.1 % (0.0-7.0); Hemoglobin 7.9 g/dL (13.5-17.5); Lymphocytes # (auto) 0.3 10 ^3/uL (0.4-5.4); Monocytes # (auto) 0.6 10 ^3/uL (0-1.3); Neutrophils # (auto) 12.9 10 ^3/uL (1.6-8.6)
[2020-10-15 04:25] LABS: Basophils # (auto) 0.1 10 ^3/uL (0-0.2); Basophils % (auto) 0.4 % (0.0-2.0); Hematocrit 22.8 % (41.0-53.0); Mean Corpuscular Hemoglobin 29.2 pg (28.0-32.0); Mean Corpuscular Hgb Conc. 34.6 g/dL (32.0-36.0); Mean Corpuscular Volume 84.4 fL (80.0-100.0); Monocytes % (auto) 4.6 % (0.0-12.0); Neutrophils % (auto) 92.9 % (37.0-80.0); Red Cell Distribution Width 17.2 % (11.8-14.3); White Blood Cell 13.9 10^3/uL (4.4-10.8)
[2020-10-15 04:44] LABS: Potassium 4.3 mmol/L (3.5-5.1)
[2020-10-15 04:49] LABS: BUN/Creatinine Ratio 48.6; Calcium 7.7 mg/dL (8.5-10.1)
[2020-10-15] MEDS: FUROSEMIDE 100 MG/10ML VIAL IV SCH (05:51)
[2020-10-15] MEDS: MEROPENEM 1GM IVPB 100 ML IV SCH ×2 (05:51→18:38)
[2020-10-15] MEDS: ALBUTEROL SULF 2.5 MG/0.5ML(0.5%) NEB SOLN NEB SCH ×5 (06:00→21:55)
[2020-10-15] MEDS: IPRATROPIUM BROM 0.5 MG/2.5ML INH SOL NEB SCH ×5 (06:15→21:55)
[2020-10-15] MEDS: SOD CHL 0.45% 1,000 ML IV SCH ×2 (08:56→15:03)
[2020-10-15] MEDS: BICALUTAMIDE 50 MG PO SCH (10:00)
[2020-10-15] MEDS: AMIODARONE HCL 200 MG TAB PO SCH (10:01)
[2020-10-15] MEDS: methylPREDNISolone SOD SUCC 40 MG/ML VL IV SCH (10:01)
[2020-10-15] MEDS: PANTOPRAZOLE 40 MG/10 ML VIAL INJ IV SCH (10:01)
[2020-10-15] MEDS: DOCUSATE ORAL LIQUID 100 MG/10 ML UD GT SCH (10:01)
[2020-10-15] MEDS: ASPirin 81 mg TAB PO SCH (10:01)
[2020-10-15] MEDS: VASOPRESSIN 50 UNITS in D5W 5% 247.5 ML IV SCH (10:30)
[2020-10-15] MEDS: BUDESONIDE (INHALATION) 0.5 MG/2 ML NEB NEB SCH ×2 (10:40→21:55)
[2020-10-15] MEDS: fentaNYL Drip 2500mCg/250mlNS 250 ML IV SCH (13:30)
[2020-10-15] MEDS: NOREPINEPHRINE 8 MG/250ML KIT 250 ML IV SCH (21:03)
[2020-10-15] MEDS: APIXABAN 5 MG TAB PO SCH (21:04)
[2020-10-15] MEDS: ATORVASTATIN 20 MG TAB PO SCH (21:06)
[2020-10-15] MEDS: SENNA 8.6 MG TAB PO SCH (21:07)
[2020-10-15] MEDS: MIDAZOLAM DRIP 50 mg/50mL 50 ML IV SCH (21:15)
[2020-10-16] VITALS (70 sets, daily range): BP systolic 105–168; BP diastolic 22–109
[2020-10-16] MEDS: MIDAZOLAM DRIP 50 mg/50mL 50 ML IV SCH (01:43)
[2020-10-16] MEDS: fentaNYL Drip 2500mCg/250mlNS 250 ML IV SCH (01:47)
[2020-10-16 04:34] LABS: Eosinophils # (auto) 0 10 ^3/uL (0-0.8); Eosinophils % (auto) 0.2 % (0.0-7.0); Hemoglobin 8.4 g/dL (13.5-17.5); Lymphocytes # (auto) 0.3 10 ^3/uL (0.4-5.4); Mean Corpuscular Hemoglobin 29.4 pg (28.0-32.0); Monocytes # (auto) 0.8 10 ^3/uL (0-1.3); Nucleated Red Blood Cells % 0.1 %
[2020-10-16 04:35] LABS: Basophils # (auto) 0.1 10 ^3/uL (0-0.2); Basophils % (auto) 0.5 % (0.0-2.0); Hematocrit 24.4 % (41.0-53.0); Lymphocytes % (auto) 2.1 % (10.0-50.0); Mean Corpuscular Hgb Conc. 34.2 g/dL (32.0-36.0); Mean Corpuscular Volume 85.8 fL (80.0-100.0); Monocytes % (auto) 5.4 % (0.0-12.0); Neutrophils % (auto) 91.8 % (37.0-80.0); Red Blood Cells 2.85 10^6/uL (4.5-5.90); Red Cell Distribution Width 16.8 % (11.8-14.3); White Blood Cell 15.2 10^3/uL (4.4-10.8)
[2020-10-16 04:43] LABS: BUN/Creatinine Ratio 34.8; Calcium 6.3 mg/dL (8.5-10.1); Phosphorus 6.6 mg/dL (2.5-4.90); Potassium 4.3 mmol/L (3.5-5.1)
[2020-10-16] MEDS: MEROPENEM 1GM IVPB 100 ML IV SCH ×2 (06:01→18:08)
[2020-10-16] MEDS: DOPamine 1600MCG/ML D5W 250 ML IV SCH ×2 (08:20→23:40)
[2020-10-16] MEDS: ALBUTEROL SULF 2.5 MG/0.5ML(0.5%) NEB SOLN NEB SCH ×5 (08:30→22:07)
[2020-10-16] MEDS: IPRATROPIUM BROM 0.5 MG/2.5ML INH SOL NEB SCH ×5 (08:30→22:07)
[2020-10-16] MEDS ORDERED: CALCIUM GLUC 1,000mg/50ml-NS 50 ML IV ONE (09:45)
[2020-10-16] MEDS: BUDESONIDE (INHALATION) 0.5 MG/2 ML NEB NEB SCH ×2 (10:08→18:32)
[2020-10-16] MEDS: VASOPRESSIN 50 UNITS in D5W 5% 247.5 ML IV SCH (10:30)
[2020-10-16] MEDS: DOCUSATE ORAL LIQUID 100 MG/10 ML UD GT SCH (11:19)
[2020-10-16] MEDS: FUROSEMIDE 100 MG/10ML VIAL IV SCH (11:20)
[2020-10-16] MEDS: PANTOPRAZOLE 40 MG/10 ML VIAL INJ IV SCH (11:21)
[2020-10-16] MEDS: ASPirin 81 mg TAB PO SCH (11:21)
[2020-10-16] MEDS: AMIODARONE HCL 200 MG TAB PO SCH (11:21)
[2020-10-16] MEDS: methylPREDNISolone SOD SUCC 40 MG/ML VL IV SCH (11:21)
[2020-10-16] MEDS: BICALUTAMIDE 50 MG PO SCH (11:21)
[2020-10-16] MEDS: APIXABAN 5 MG TAB PO SCH ×2 (11:22→21:03)
[2020-10-16] MEDS: SOD CHL 0.45% 1,000 ML IV SCH (13:06)
[2020-10-16] MEDS: NOREPINEPHRINE 8 MG/250ML KIT 250 ML IV SCH (21:02)
[2020-10-16] MEDS: SENNA 8.6 MG TAB PO SCH (21:03)
[2020-10-16] MEDS: ATORVASTATIN 20 MG TAB PO SCH (21:04)
[2020-10-17] VITALS (68 sets, daily range): BP systolic 71–134; BP diastolic 31–83
[2020-10-17] MEDS: SOD CHL 0.45% 1,000 ML IV SCH ×4 (00:24→17:15)
[2020-10-17] MEDS: fentaNYL Drip 2500mCg/250mlNS 250 ML IV SCH (01:21)
[2020-10-17 04:43] LABS: Eosinophils # (auto) 0 10 ^3/uL (0-0.8); Eosinophils % (auto) 0.2 % (0.0-7.0); Lymphocytes # (auto) 0.3 10 ^3/uL (0.4-5.4); Mean Corpuscular Volume 85.7 fL (80.0-100.0)
[2020-10-17 04:45] LABS: Basophils # (auto) 0.1 10 ^3/uL (0-0.2); Basophils % (auto) 0.4 % (0.0-2.0); Hematocrit 24.8 % (41.0-53.0); Hemoglobin 8.5 g/dL (13.5-17.5); Lymphocytes % (auto) 1.9 % (10.0-50.0); Mean Corpuscular Hemoglobin 29.4 pg (28.0-32.0); Mean Corpuscular Hgb Conc. 34.3 g/dL (32.0-36.0); Monocytes # (auto) 0.7 10 ^3/uL (0-1.3); Monocytes % (auto) 4.6 % (0.0-12.0); Neutrophils # (auto) 14.5 10 ^3/uL (1.6-8.6); Neutrophils % (auto) 92.9 % (37.0-80.0); Nucleated Red Blood Cells % 0.1 %; Red Blood Cells 2.89 10^6/uL (4.5-5.90); White Blood Cell 15.6 10^3/uL (4.4-10.8)
[2020-10-17 05:10] LABS: Albumin 2.4 g/dL (3.4-5.0); Potassium 4.5 mmol/L (3.5-5.1)
[2020-10-17 05:13] LABS: BUN/Creatinine Ratio 54.2
[2020-10-17 05:16] LABS: Bilirubin, Total 1.1 mg/dL (0.2-1.0); Total Protein 4.7 g/dL (6.4-8.2)
[2020-10-17] MEDS: MEROPENEM 1GM IVPB 100 ML IV SCH ×2 (05:41→18:55)
[2020-10-17] MEDS: ALBUTEROL SULF 2.5 MG/0.5ML(0.5%) NEB SOLN NEB SCH ×5 (09:07→22:05)
[2020-10-17] MEDS: IPRATROPIUM BROM 0.5 MG/2.5ML INH SOL NEB SCH ×5 (09:08→22:05)
[2020-10-17] MEDS: BUDESONIDE (INHALATION) 0.5 MG/2 ML NEB NEB SCH ×2 (09:08→22:05)
[2020-10-17] MEDS: DOCUSATE ORAL LIQUID 100 MG/10 ML UD GT SCH (10:17)
[2020-10-17] MEDS: ASPirin 81 mg TAB PO SCH (10:17)
[2020-10-17] MEDS: methylPREDNISolone SOD SUCC 40 MG/ML VL IV SCH (10:17)
[2020-10-17] MEDS: FUROSEMIDE 100 MG/10ML VIAL IV SCH (10:17)
[2020-10-17] MEDS: APIXABAN 5 MG TAB PO SCH ×2 (10:17→20:29)
[2020-10-17] MEDS: PANTOPRAZOLE 40 MG/10 ML VIAL INJ IV SCH (10:17)
[2020-10-17] MEDS: AMIODARONE HCL 200 MG TAB PO SCH (10:18)
[2020-10-17] MEDS: BICALUTAMIDE 50 MG PO SCH (10:18)
[2020-10-17] MEDS: VASOPRESSIN 50 UNITS in D5W 5% 247.5 ML IV SCH (10:30)
[2020-10-17] MEDS: MIDAZOLAM DRIP 50 mg/50mL 50 ML IV SCH (11:44)
[2020-10-17] MEDS: DOPamine 1600MCG/ML D5W 250 ML IV SCH (13:42)
[2020-10-17] MEDS: CALCIUM ACETATE 667 MG CAP NG SCH ×2 (14:03→20:29)
[2020-10-17] MEDS: NOREPINEPHRINE 8 MG/250ML KIT 250 ML IV SCH (19:59)
[2020-10-17] MEDS: ATORVASTATIN 20 MG TAB PO SCH (20:28)
[2020-10-17] MEDS: SENNA 8.6 MG TAB PO SCH (20:29)
[2020-10-18] VITALS (83 sets, daily range): BP systolic 92–162; BP diastolic 26–118
[2020-10-18] MEDS: SOD CHL 0.45% 1,000 ML IV SCH ×3 (00:05→13:16)
[2020-10-18] MEDS: MEROPENEM 1GM IVPB 100 ML IV SCH ×2 (04:42→17:45)
[2020-10-18] MEDS: CALCIUM ACETATE 667 MG CAP NG SCH ×3 (04:45→21:57)
[2020-10-18 04:56] LABS: Hematocrit 24.7 % (41.0-53.0)
[2020-10-18 04:58] LABS: Hemoglobin 8.5 g/dL (13.5-17.5); Mean Corpuscular Hemoglobin 29.5 pg (28.0-32.0); Mean Corpuscular Hgb Conc. 34.2 g/dL (32.0-36.0); Mean Corpuscular Volume 86.3 fL (80.0-100.0); Red Blood Cells 2.87 10^6/uL (4.5-5.90); Red Cell Distribution Width 17.2 % (11.8-14.3); White Blood Cell 17.6 10^3/uL (4.4-10.8)
[2020-10-18 05:05] LABS: BUN/Creatinine Ratio 53.6
[2020-10-18 05:08] LABS: Basophils % (manual) 0 (0.0-2.0); Blast Cells 0; Eosinophils % (manual) 0 (0-7); Metamyelocytes % 0; Myelocytes % 0; Promyelocytes % 0; Reactive Lymphocytes 0
[2020-10-18 05:32] LABS: Potassium 5.7 mmol/L (3.5-5.1)
[2020-10-18] MEDS: DOPamine 1600MCG/ML D5W 250 ML IV SCH ×3 (06:20→21:40)
[2020-10-18] MEDS: BUDESONIDE (INHALATION) 0.5 MG/2 ML NEB NEB SCH ×2 (06:45→18:14)
[2020-10-18] MEDS: IPRATROPIUM BROM 0.5 MG/2.5ML INH SOL NEB SCH ×5 (06:45→22:06)
[2020-10-18] MEDS: ALBUTEROL SULF 2.5 MG/0.5ML(0.5%) NEB SOLN NEB SCH ×5 (06:45→22:06)
[2020-10-18 07:38] LABS: Band Neutrophils % (manual) 4; Lymphocytes % (manual) 3 (10.0-50.0); Monocytes % (manual) 5 (0-12)
[2020-10-18] MEDS: VASOPRESSIN 50 UNITS in D5W 5% 247.5 ML IV SCH (10:13)
[2020-10-18] MEDS: methylPREDNISolone SOD SUCC 40 MG/ML VL IV SCH (10:25)
[2020-10-18] MEDS: ASPirin 81 mg TAB PO SCH (10:25)
[2020-10-18] MEDS: FUROSEMIDE 100 MG/10ML VIAL IV SCH (10:25)
[2020-10-18] MEDS: DOCUSATE ORAL LIQUID 100 MG/10 ML UD GT SCH (10:25)
[2020-10-18] MEDS: AMIODARONE HCL 200 MG TAB PO SCH (10:26)
[2020-10-18] MEDS: BICALUTAMIDE 50 MG PO SCH (10:26)
[2020-10-18] MEDS: APIXABAN 5 MG TAB PO SCH ×2 (10:26→21:57)
[2020-10-18] MEDS: PANTOPRAZOLE 40 MG/10 ML VIAL INJ IV SCH (10:27)
[2020-10-18] MEDS: SODIUM ZIRCONIUM CYCL 10 GM PAK GT SCH ×2 (13:15→21:57)
[2020-10-18] MEDS: fentaNYL Drip 2500mCg/250mlNS 250 ML IV SCH (13:30)
[2020-10-18] MEDS: BUMETANIDE INJECTION 12.5 MG in GIVE UN-DILUTED 0 ML IV SCH (17:44)
[2020-10-18] MEDS: MIDAZOLAM DRIP 50 mg/50mL 50 ML IV SCH (21:15)
[2020-10-18] MEDS: NOREPINEPHRINE 8 MG/250ML KIT 250 ML IV SCH (21:15)
[2020-10-18] MEDS: ATORVASTATIN 20 MG TAB PO SCH (21:57)
[2020-10-18] MEDS: SENNA 8.6 MG TAB PO SCH (21:57)
[2020-10-19] VITALS (81 sets, daily range): BP systolic 85–191; BP diastolic 31–115
[2020-10-19] MEDS: SOD CHL 0.45% 1,000 ML IV SCH ×3 (01:00→17:00)
[2020-10-19 04:39] LABS: Hematocrit 24.7 % (41.0-53.0); Hemoglobin 8.4 g/dL (13.5-17.5); Mean Corpuscular Hemoglobin 29.4 pg (28.0-32.0); Mean Corpuscular Hgb Conc. 34.1 g/dL (32.0-36.0); Mean Corpuscular Volume 86.2 fL (80.0-100.0); Red Blood Cells 2.87 10^6/uL (4.5-5.90); Red Cell Distribution Width 16.6 % (11.8-14.3); White Blood Cell 18.4 10^3/uL (4.4-10.8)
[2020-10-19 04:41] LABS: Basophils % (manual) 0 (0.0-2.0); Blast Cells 0; Lymphocytes % (manual) 0 (10.0-50.0); Metamyelocytes % 0; Myelocytes % 0; Promyelocytes % 0; Reactive Lymphocytes 0
[2020-10-19 04:51] LABS: Calcium 7.6 mg/dL (8.5-10.1); Potassium 4.8 mmol/L (3.5-5.1)
[2020-10-19 04:53] LABS: BUN/Creatinine Ratio 54.4
[2020-10-19] MEDS: IPRATROPIUM BROM 0.5 MG/2.5ML INH SOL NEB SCH ×5 (06:03→22:29)
[2020-10-19] MEDS: ALBUTEROL SULF 2.5 MG/0.5ML(0.5%) NEB SOLN NEB SCH ×5 (06:03→22:29)
[2020-10-19] MEDS: BUDESONIDE (INHALATION) 0.5 MG/2 ML NEB NEB SCH ×2 (06:03→18:06)
[2020-10-19] MEDS: CALCIUM ACETATE 667 MG CAP NG SCH ×3 (06:32→23:11)
[2020-10-19] MEDS: SODIUM ZIRCONIUM CYCL 10 GM PAK GT SCH ×2 (06:32→14:13)
[2020-10-19] MEDS: MEROPENEM 1GM IVPB 100 ML IV SCH ×2 (06:32→18:00)
[2020-10-19 06:33] LABS: Band Neutrophils % (manual) 2; Eosinophils % (manual) 1 (0-7); Monocytes % (manual) 6 (0-12)
[2020-10-19] MEDS: APIXABAN 5 MG TAB PO SCH ×2 (10:00→22:00)
[2020-10-19] MEDS: VASOPRESSIN 50 UNITS in D5W 5% 247.5 ML IV SCH (10:30)
[2020-10-19] MEDS: methylPREDNISolone SOD SUCC 40 MG/ML VL IV SCH ×2 (10:46→12:00)
[2020-10-19] MEDS: PANTOPRAZOLE 40 MG/10 ML VIAL INJ IV SCH (10:46)
[2020-10-19] MEDS: DOCUSATE ORAL LIQUID 100 MG/10 ML UD GT SCH (10:46)
[2020-10-19] MEDS: ASPirin 81 mg TAB PO SCH (10:47)
[2020-10-19] MEDS: AMIODARONE HCL 200 MG TAB PO SCH (10:47)
[2020-10-19] MEDS: BICALUTAMIDE 50 MG PO SCH (10:48)
[2020-10-19] MEDS: DOPamine 1600MCG/ML D5W 250 ML IV SCH ×2 (11:00→11:08)
[2020-10-19] MEDS: BUMETANIDE INJECTION 12.5 MG in GIVE UN-DILUTED 0 ML IV SCH (11:00)
[2020-10-19] MEDS: hydrALAZINE HCL 20 MG/ML VL IV PRN (12:49)
[2020-10-19] MEDS: fentaNYL Drip 2500mCg/250mlNS 250 ML IV SCH (13:30)
[2020-10-19] MEDS: NOREPINEPHRINE 8 MG/250ML KIT 250 ML IV SCH (21:15)
[2020-10-19] MEDS: SENNA 8.6 MG TAB PO SCH (23:10)
[2020-10-19] MEDS: ATORVASTATIN 20 MG TAB PO SCH (23:10)
[2020-10-20] VITALS (46 sets, daily range): BP systolic 83–179; BP diastolic 24–105
[2020-10-20] MEDS: SOD CHL 0.45% 1,000 ML IV SCH (01:00)
[2020-10-20 04:37] LABS: Hematocrit 26.2 % (41.0-53.0); Hemoglobin 8.9 g/dL (13.5-17.5); Mean Corpuscular Hemoglobin 29.3 pg (28.0-32.0); Mean Corpuscular Volume 86.2 fL (80.0-100.0); Red Blood Cells 3.04 10^6/uL (4.5-5.90); Red Cell Distribution Width 17.1 % (11.8-14.3); White Blood Cell 20.4 10^3/uL (4.4-10.8)
[2020-10-20 04:52] LABS: Basophils % (manual) 0 (0.0-2.0); Blast Cells 0; Eosinophils % (manual) 0 (0-7); Metamyelocytes % 0; Promyelocytes % 0; Reactive Lymphocytes 0
[2020-10-20 04:53] LABS: Calcium 7.6 mg/dL (8.5-10.1)
[2020-10-20 05:04] LABS: BUN/Creatinine Ratio 47.7
[2020-10-20 05:19] LABS: Band Neutrophils % (manual) 8; Lymphocytes % (manual) 6 (10.0-50.0); Monocytes % (manual) 4 (0-12); Myelocytes % 1
[2020-10-20] MEDS: IPRATROPIUM BROM 0.5 MG/2.5ML INH SOL NEB SCH ×2 (06:01→10:06)
[2020-10-20] MEDS: BUDESONIDE (INHALATION) 0.5 MG/2 ML NEB NEB SCH (06:02)
[2020-10-20] MEDS: ALBUTEROL SULF 2.5 MG/0.5ML(0.5%) NEB SOLN NEB SCH ×2 (06:02→10:06)
[2020-10-20] MEDS: CALCIUM ACETATE 667 MG CAP NG SCH (06:21)
[2020-10-20] MEDS: MEROPENEM 1GM IVPB 100 ML IV SCH (06:21)
[2020-10-20] MEDS: APIXABAN 5 MG TAB PO SCH (10:00)
[2020-10-20] MEDS: VASOPRESSIN 50 UNITS in D5W 5% 247.5 ML IV SCH (10:30)
[2020-10-20] MEDS: PANTOPRAZOLE 40 MG/10 ML VIAL INJ IV SCH (10:48)
[2020-10-20] MEDS: methylPREDNISolone SOD SUCC 40 MG/ML VL IV SCH (10:48)
[2020-10-20] MEDS: AMIODARONE HCL 200 MG TAB PO SCH (10:49)
[2020-10-20] MEDS: ASPirin 81 mg TAB PO SCH (10:49)
[2020-10-20] MEDS: DOCUSATE ORAL LIQUID 100 MG/10 ML UD GT SCH (10:49)
[2020-10-20] MEDS: BICALUTAMIDE 50 MG PO SCH (10:50)
[2020-10-20] MEDS: BUMETANIDE INJECTION 12.5 MG in GIVE UN-DILUTED 0 ML IV SCH (11:00)
[2020-10-20] MEDS: DOPamine 1600MCG/ML D5W 250 ML IV SCH (11:09)
[2020-10-20] MEDS ORDERED: OCTREOTIDE ACETATE 100 MCG/ML VL SUBCUT SCH ×2 (12:30→14:00)
[2020-10-20] MEDS ORDERED: EPINEPHrine HCL 250 ML IV ONE (13:41)
[2020-10-20] MEDS ORDERED: EPINEPHrine HCL 250 ML IV SCH (13:45)
[2020-10-20] MEDS ORDERED: EPINEPHrine HCL 1 MG/10 ML SYRG IV ONE (18:57)
[2020-10-20] MEDS ORDERED: CALCIUM CHLOR(10%) 100MG/ML 10ML SYRINGE IV ONE (18:57)
[2020-10-20] MEDS ORDERED: SODIUM BICARBONATE 8.4% INJ 50ML SYRINGE IV ONE (18:57)
== END 2020-10-20 18:58 | DRG 870 ==
LOC: EDUNIT# 23:25 → ER 23:25 → EDBD 23:25 → TELE 10-03 03:41 → TELE-WESTW 10-03 10:41 → ICU WEST 10-03 20:45 → OVERFLOW 10-06 14:46 → ICU WEST 10-06 14:48
PROVIDERS: ADMIT Nurse Practitioner Family; ATTEND Internal Medicine Pulmonary Disease
PROC: 5A1955Z Respiratory Ventilation, Greater than 96 Consecutive Hours (ICD-10-PCS; principal; 2020-10-03)
PROC: 0BH17EZ Insertion of Endotracheal Airway into Trachea, Via Natural or Artificial Opening (ICD-10-PCS; 2020-10-04)
PROC: 02HV33Z Insertion of Infusion Device into Superior Vena Cava, Percutaneous Approach (ICD-10-PCS; 2020-10-04)
PROC: 5A12012 Performance of Cardiac Output, Single, Manual (ICD-10-PCS; 2020-10-11)
PROC: 30233N1 Transfusion of Nonautologous Red Blood Cells into Peripheral Vein, Percutaneous Approach (ICD-10-PCS; 2020-10-13)
DX: A41.9 Sepsis, unspecified organism (principal); N17.0 Acute kidney failure with tubular necrosis; J96.01 Acute respiratory failure with hypoxia; R65.21 Severe sepsis with septic shock; I21.4 Non-ST elevation (NSTEMI) myocardial infarction; J96.02 Acute respiratory failure with hypercapnia; I50.33 Acute on chronic diastolic (congestive) heart failure; G92 Toxic encephalopathy; E44.0 Moderate protein-calorie malnutrition; N39.0 Urinary tract infection, site not specified; D68.69 Other thrombophilia; I48.20 Chronic atrial fibrillation, unspecified; I42.9 Cardiomyopathy, unspecified; J44.1 Chronic obstructive pulmonary disease with (acute) exacerbation; E87.0 Hyperosmolality and hypernatremia; I82.612 Acute embolism and thrombosis of superficial veins of left upper extremity; I46.9 Cardiac arrest, cause unspecified; Z20.822 Contact with and (suspected) exposure to COVID-19; E88.09 Other disorders of plasma-protein metabolism, not elsewhere classified; E78.5 Hyperlipidemia, unspecified; N40.0 Benign prostatic hyperplasia without lower urinary tract symptoms; L89.152 Pressure ulcer of sacral region, stage 2; E87.5 Hyperkalemia; N18.31 Chronic kidney disease, stage 3a; R31.9 Hematuria, unspecified; D64.9 Anemia, unspecified; C61 Malignant neoplasm of prostate; E83.39 Other disorders of phosphorus metabolism; F41.9 Anxiety disorder, unspecified; K57.90 Diverticulosis of intestine, part unspecified, without perforation or abscess without bleeding; K59.00 Constipation, unspecified; K80.20 Calculus of gallbladder without cholecystitis without obstruction; M47.816 Spondylosis without myelopathy or radiculopathy, lumbar region; N20.9 Urinary calculus, unspecified; N28.1 Cyst of kidney, acquired; N43.3 Hydrocele, unspecified; N48.83 Acquired buried penis; Z79.01 Long term (current) use of anticoagulants; Z85.46 Personal history of malignant neoplasm of prostate; Z68.25 Body mass index [BMI] 25.0-25.9, adult; I25.2 Old myocardial infarction; Z79.899 Other long term (current) drug therapy; Z79.891 Long term (current) use of opiate analgesic; Z87.442 Personal history of urinary calculi; Z81.1 Family history of alcohol abuse and dependence; Z83.6 Family history of other diseases of the respiratory system; Z80.0 Family history of malignant neoplasm of digestive organs
CPT/HCPCS: 36415; 36600; 70450; 71045; 71250; 76775; 76881; 80048; 80053; 80074; 80202; 81001; 82570; 82728; 82805; 82962; 83540; 83550; 83605; 83735; 83880; 84100; 84154; 84156; 84300; 84443; 84484; 84550; 85007; 85025; 85027; 85049; 85379; 85610; 85730; 86850; 86900; 86901; 86920; 87040; 87070; 87081; 87086; 87088; 87205; 87426; 90935; 92950; 93005; 93306; 94002; 94003; 94640; 96361; 96365; 97110; A4618; C9113; G0378; J0171; J0696; J1450; J2185; J2250; J3490; J7060; P9047